=== PATIENT | male | born 1930 | race Caucasian/White ===

== ENCOUNTER → 2016-05-26 | Outpatient (CLI) | payer OTHER ==
[~2016-05-26] VITALS: Ht 180.3 cm; Wt 111.4 kg
[~2016-05-26] MED LIST: ACET-1256 PO; ALLO300T2 PO; ASPI81TA28 PO; CHOL100010 PO; DEXT30TA7 PO; DOCU100C31 PO; GLIP-197 PO; GUAI-13; HYDR-4717 PO; LEVO75TA5 PO; LOSA1TAB38 PO; MAGNTAB4 PO; METO-551 PO; METO5TAB5 PO; MULT-506 PO; NRN300 PO; NZRCR TD; PRAV20TA2 PO; PRED10TA PO; RIVA1TAB4 PO
[2016-05-26 12:54] VITALS: BP 190/72; PULSE 52; Ht 180.3 cm; Wt 111.4 kg
[2016-05-26 12:55] VITALS: BP 228/102
== END | disposition home or self-care (01) ==
LOC: C.NEUR 12:21
PROVIDERS: ATTEND Internal Medicine Pulmonary Disease
DX: G47.30 Sleep apnea, unspecified (principal); I10 Essential (primary) hypertension

== ENCOUNTER → 2016-07-17 | Outpatient (CLI) | payer OTHER ==
[2016-07-17 12:53] LABS: BASO % 0.5 %; BASO ABS # 0.03 K/uL (0-0.2); COMPLETE YES; EOS % 3.4 %; HEMATOCRIT 42.1 % (42-52); IG% 0.3 %; LYMPH % 23.5 %; LYMPH ABS # 1.38 K/uL (1.2-3.4); MEAN CELL VOLUME 91.3 fL (80-100); MEAN CORPUSCULAR HEMOGLOBIN 31.5 pg (25-34); MEAN CORPUSCULAR HGB CONC 34.4 g/dl (32-36); MEAN PLATELET VOLUME 10.1 fL (7.4-10.4); MONO % 9.2 %; NEUT % 63.1 %; PLATELET COUNT 168 K/uL (130-400); RED BLOOD COUNT 4.61 M/uL (4.7-6.1); WHITE BLOOD COUNT 5.86 K/uL (4.8-10.8)
[2016-07-17 13:07] LABS: AST/SGOT 21 U/L (15-37); BLOOD UREA NITROGEN 21 mg/dl (7-18); BUN/CREATININE RATIO 17.6 (10-20); CALCIUM 10.5 mg/dl (8.5-10.1); CARBON DIOXIDE 31 mmol/L (21-32); CHLORIDE 102 mmol/L (98-107); CHOLESTEROL 192 mg/dl (0-200); GLUCOSE 112 mg/dl (70-99); POTASSIUM 4.2 mmol/L (3.5-5.1); SODIUM 141 mmol/L (136-145)
[2016-07-17 13:17] LABS: ALT/SGPT 39 U/L (12-78); CHOLESTEROL/HDL RATIO 3.8; HDL CHOLESTEROL 50 mg/dl; LDL CHOLESTEROL CALCULATED 102 mg/dl; TRIGLYCERIDES 199 mg/dl (0-150); VERY LOW DENSITY LIPOPROT CALC 40 mg/dl
[2016-07-17 13:44] LABS: ESTIMATED AVERAGE GLUCOSE 151 mg/dl; HA1C FLAG Normal (Normal)
--- NOTE | 2016-08-02 10:56 | CODING QUERY MEDICAL NECESSITY ---
CQSUPPORTING DIAGNOSIS NEEDED A supporting diagnosis is required for the test/procedure performed on this patient in order for us to be reimbursed by the patient's insurance. Please provide a supporting diagnosis for the following test/procedure listed below next to the test name along with your signature. *If there is no additional diagnosis for this patient that would support the following test/procedure please document that below next to the test/procedure. Test(s)/Procedure(s) that require a supporting diagnosis: DOS 07/17/16 PROSTATE SPECIFIC TEST (PSA) ORDERED BY ABIDA VILLARREAL Provider Signature: Date: Thank you Maria A Cuello Health Information Management Once completed, please kindly fax back to [phone] For questions please call [phone]
== END | disposition home or self-care (01) ==
LOC: C.LABBFT 07:38
PROVIDERS: ATTEND Internal Medicine
DX: E11.9 Type 2 diabetes mellitus without complications (principal); E03.9 Hypothyroidism, unspecified; C61 Malignant neoplasm of prostate

== ENCOUNTER 2016-07-23 03:53 | Inpatient (IN) | payer OTHER ==
[~2016-07-23] VITALS: Ht 180.3 cm; Wt 107.9 kg
[2016-07-23] VITALS (8 sets, daily range): BP systolic 166–191; BP diastolic 66–71; PULSE 52–70; TEMP 36.7–37; O2SAT 92–95; Ht 180.3 cm; Wt 107.9 kg
[~2016-07-23 03:53] MED LIST changes: -DEXT30TA7 PO; -GUAI-13; -NZRCR TD; -PRED10TA PO
--- NOTE | 2016-07-23 04:27 | EMERGENCY ROOM VISIT NOTE ---
History Report prepared by Kandis: Mc León Under the Supervision of: Dr. Sanna Mathis D.O. First contact with patient: 03:55 Chief Complaint: SHORTNESS OF BREATH Stated Complaint: SHORT OF BREATH History of Present Illness The patient is an 85 year old male who presents to the Emergency Room with complaints of persistent cough for the past few days. The cough is non- productive and the patient notes that sometimes with the episodes of coughing he cannot catch his breath. He also complains of some chest pain with the cough. The patient denies any lung history. He has history of an irregular heart beat and takes Xarelto. Source of History: patient Onset: the past few days Position: other (global) Associated Symptoms: + SOB (with episodes of coughing), + chest pain (with cough) Review of Systems See HPI for pertinent positives & negatives. A total of 10 systems reviewed and were otherwise negative. Past Medical & Surgical Medical Problems: (1) Acute bronchitis (2) Atrial fibrillation (3) Diabetes (4) Shingles Family History No significant family history Social History Smoking Status: Former Smoker Marital Status: Housing Status: lives with family Occupation Status: retired Current/Historical Medications Scheduled Allopurinol (Zyloprim), 300 MG PO DAILY Aspirin (Aspirin Ec), 81 MG PO DAILY Cholecalciferol (Vitamin D), 1,000 INTER.UNIT PO DAILY Gabapentin (Gabapentin), 300 MG PO HS Glipizide (Glipizide Er), 1 TAB PO BID Hydralazine Hcl (Apresoline), 50 MG PO BID Ketoconazole (Ketoconazole), 1 APPLN TD BID Levothyroxine Sodium (Levothyroxine Sodium), 75 MCG PO DAILY Losartan Potassium (Cozaar), 100 MG PO DAILY Magnesium Chloride (Slow-Mag Tab), 64 MG PO BID Metolazone (Zaroxolyn), 5 MG PO DAILY Multivitamin (Multivitamin), 1 TAB PO DAILY Pravastatin Sodium (Pravachol), 20 MG PO DAILY Prednisone Tab (Prednisone), 10 MG PO UD Rivaroxaban (Xarelto), 20 MG PO DAILY Scheduled PRN Acetaminophen (Tylenol), 1,000 MG PO BID PRN for Pain Docusate Sodium (Docusate Sodium), 100 MG PO 2XWK PRN for Constipation Allergies Coded Allergies: No Known Allergies (Verified , ?, 01/02/15) Physical Exam Vital Signs Date Time Temp Pulse Resp B/P Pulse Ox O2 Delivery O2 Flow Rate FiO2 07/23/16 06:54 65 20 160/73 93 Nasal Cannula 07/23/16 06:50 65 18 160/73 94 Nasal Cannula 3.0 07/23/16 05:48 61 20 158/79 95 Nasal Cannula 3.0 07/23/16 05:22 61 07/23/16 05:09 60 16 175/88 94 Nasal Cannula 3.0 07/23/16 04:06 80 07/23/16 04:00 87 Room Air 07/23/16 04:00 37.6 74 16 216/89 91 Nasal Cannula 2.0 Physical Exam HEENT: Head - normocephalic and atraumatic Pupils are equal, round, and reactive to light. Extraocular eye muscles are intact, and sclera are anicteric. Nose - moist nasal mucosa without discharge. Mouth - moist buccal mucosa. Oropharynx is nonerythematous and there is no tonsillar exudate or edema noted. Neck: Supple; no JVD, nuchal rigidity, cervical lymphadenopathy. Heart: Irregular. There is a normal S1 and S2 with no murmurs, clicks, or gallops appreciated. Lungs: Diminished lung sounds in all lung sprague. Abdomen: Soft, completely nontender, nondistended, with good bowel sounds. There are no palpable pulsatile masses or hepatosplenomegaly. There is no guarding, rigidity, or rebound noted. Extremities: No evidence of cyanosis, clubbing. Trace pedal edema. There are easily palpable peripheral pulses. Skin: warm and dry with good turgor and no rashes. Medical Decision & Procedures ER Provider Diagnostic Interpretation: X-ray results as stated below per interpretation by me and the radiologist: CHEST 2 VIEWS ROUTINE CLINICAL HISTORY: eval for director of audiology vs pneumonia dyspnea COMPARISON STUDY: 09/04/2012 FINDINGS: Moderate cardiomegaly. Atelectasis versus infiltrate left base. Pre-existing plate like atelectasis right base. IMPRESSION: 1. Moderate cardiomegaly. 2. Developing infiltrate versus atelectatic change left base. Electronically signed by: Odell Carter M.D. 07/23/2016 6:55 AM Dictated Date/Time: 07/23/2016 6:[address] WITH CONTRAST CT DOSE: 701.08 mGy.cm HISTORY: Pain. Atelectasis. eval for pulmonary consolidation or infiltrate TECHNIQUE: Multiaxial CT images of the chest were performed following the intravenous administration of contrast. COMPARISON: Chest films same date FINDINGS: Minimal bibasilar atelectasis. There are no findings of a consolidative infiltrate. Mid and upper lungs are considered clear. No significant mediastinal or hilar adenopathy. Moderate atelectatic change thoracic aorta. No evidence for aneurysm or dissection. Calcification the coronary arterial vasculature. IMPRESSION: Mild bibasilar atelectatic change. Lungs otherwise are clear Electronically signed by: Odell Carter M.D. 07/23/2016 7:20 AM Dictated Date/Time: 07/23/2016 7:18 AM Laboratory Results Test 07/23/16 04:30 07/23/16 05:07 Immature Granulocyte % (Auto) 0.2 % White Blood Count 5.12 K/uL (4.8-10.8) Red Blood Count 4.66 M/uL (4.7-6.1) Hemoglobin 14.8 g/dL (14.0-18.0) Hematocrit 41.6 % (42-52) Mean Corpuscular Volume 89.3 fL (80-100) Mean Corpuscular Hemoglobin 31.8 pg (25-34) Mean Corpuscular Hemoglobin Concent 35.6 g/dl (32-36) Platelet Count 148 K/uL (130-400) Mean Platelet Volume 9.3 fL (7.4-10.4) Neutrophils (%) (Auto) 64.4 % Lymphocytes (%) (Auto) 22.1 % Monocytes (%) (Auto) 10.4 % Eosinophils (%) (Auto) 2.7 % Basophils (%) (Auto) 0.2 % Neutrophils # (Auto) 3.30 K/uL (1.4-6.5) Lymphocytes # (Auto) 1.13 K/uL (1.2-3.4) Monocytes # (Auto) 0.53 K/uL (0.11-0.59) Eosinophils # (Auto) 0.14 K/uL (0-0.5) Basophils # (Auto) 0.01 K/uL (0-0.2) Immature Granulocyte # (Auto) 0.01 K/uL (0.00-0.02) D-Dimer 270 ug/L FEU (0-500) Total Bilirubin 0.5 mg/dl (0.2-1) Aspartate Amino Transf (AST/SGOT) 25 U/L (15-37) Alanine Aminotransferase (ALT/SGPT) 38 U/L (12-78) Alkaline Phosphatase 68 U/L (45-117) Total Creatine Kinase 157 U/L (39-308) Creatine Kinase MB 5.2 ng/ml (0.5-3.6) Creatine Kinase MB Ratio 3.3 (0-3.0) Troponin I 0.016 ng/ml (0-0.045) Pro-B-Type Natriuretic Peptide 153 pg/ml (0-1800) Total Protein 8.1 gm/dl (6.4-8.2) Albumin 4.2 gm/dl (3.4-5.0) Globulin 3.9 gm/dl (2.5-4.0) Albumin/Globulin Ratio 1.1 (0.9-2) Influenza Type A Antigen Neg for Influ A (NEG) Influenza Type B Antigen Neg for Influ B (NEG) Laboratory results per my review. ECG Indication: SOB/dyspnea Rate (beats per minute): 69 Rhythm: normal sinus Findings: PVC, no ectopy ED Course 0401: Past medical records reviewed. The patient was evaluated in room A10. A complete history and physical exam was performed. A twelve-lead EKG was obtained. The patient was observing the senior interactive developer and pulse oximeter. He was significantly hypoxic upon presentation was placed in supplemental O2. He went for a chest x-ray as described above. 0410: At this time, I watched the patient on the patient monitor in the room. He was intermittently in and out of atrial fibrillation at this time. 0505: At this time, I reevaluated the patient and he is resting comfortably. A patient went for CT scan of the chest to rule out PE. 0738: At this time, I discussed the patient's case with Dr. Pina - Hospitalist [facility] and she agreed to accept the patient for further evaluation. Medical Decision The patient is an 85 year old male who presents to the ED with cough and shortness of breath. Differential diagnosis includes CHF, PE, pneumonia, bronchitis, or cardiac dysrhythmia. Labs reviewed by me: influenza negative, troponin normal, normal BNP, normal LFTs, BUN 24, Creatinine 1.2, glucose 118, d-dimer 270, no leukocytosis, stable H&H This is an 85-year-old male patient presents to the emergency department with sudden onset of shortness of breath and cough. The patient had a significant moist cough on presentation and was hypoxic and placed on supplemental O2. Chest x-ray and CT scan of the chest were unremarkable. Because of the hypoxia, I discussed the case with the [facility] Hospitalist and they will evaluate for further management. Consults Time Called: [phone] Consulting Physician: Dr. Pina - [place]ist [facility] [place] Call: [phone] At this time, I discussed the patient's case with Dr. Pina and she agreed to accept the patient for further evaluation. Impression Primary Impression: Hypoxia Scribe Attestation The scribe's documentation has been prepared under my direction and personally reviewed by me in its entirety. I confirm that the note above accurately reflects all work, treatment, procedures, and medical decision making performed by me. Departure Information Dispostion Being Evaluated By Hospitalist Prescriptions Prednisone Tab (PREDNISONE) 10 Mg Tab 10 MG PO UD, #3 TAB 20 mg day 1 10 mg day 2 Prov: Brittany James MD 07/24/16 Referrals Bora Najera M.D. (PCP)
[2016-07-23 04:42] LABS: BASO % 0.2 %; BASO ABS # 0.01 K/uL (0-0.2); COMPLETE YES; EOS % 2.7 %; HEMATOCRIT 41.6 % (42-52); IG% 0.2 %; LYMPH % 22.1 %; LYMPH ABS # 1.13 K/uL (1.2-3.4); MEAN CELL VOLUME 89.3 fL (80-100); MEAN CORPUSCULAR HEMOGLOBIN 31.8 pg (25-34); MEAN CORPUSCULAR HGB CONC 35.6 g/dl (32-36); MEAN PLATELET VOLUME 9.3 fL (7.4-10.4); MONO % 10.4 %; NEUT % 64.4 %; PLATELET COUNT 148 K/uL (130-400); RED BLOOD COUNT 4.66 M/uL (4.7-6.1); WHITE BLOOD COUNT 5.12 K/uL (4.8-10.8)
[2016-07-23] MEDS ORDERED: NZRCR TD ×2 (04:56)
[2016-07-23 05:00] LABS: CALCIUM 10.2 mg/dl (8.5-10.1); CREATININE 1.2 mg/dl (0.60-1.40); POTASSIUM 3.5 mmol/L (3.5-5.1)
[2016-07-23 05:05] LABS: ALB/GLOB RATIO 1.1 (0.9-2); CKMB/CK RATIO 3.3 (0-3.0)
--- NOTE | 2016-07-23 06:57 | DIAGNOSTIC IMAGING REPORT ---
CHEST 2 VIEWS ROUTINE CLINICAL HISTORY: eval for machine rigger vs pneumonia dyspnea COMPARISON STUDY: 09/04/2012 FINDINGS: Moderate cardiomegaly. Atelectasis versus infiltrate left base. Pre-existing plate like atelectasis right base. IMPRESSION: 1. Moderate cardiomegaly. 2. Developing infiltrate versus atelectatic change left base. Electronically signed by: Odell Carter M.D. 07/23/2016 6:55 AM Dictated Date/Time: 07/23/2016 6:54 AM
[2016-07-23] MEDS ORDERED: OPTIRAY 320 IV PRN (07:15)
--- NOTE | 2016-07-23 07:21 | DIAGNOSTIC IMAGING REPORT ---
CHEST CT WITH CONTRAST CT DOSE: 701.08 mGy.cm HISTORY: Pain. Atelectasis. eval for pulmonary consolidation or infiltrate TECHNIQUE: Multiaxial CT images of the chest were performed following the intravenous administration of contrast. COMPARISON: Chest films same date FINDINGS: Minimal bibasilar atelectasis. There are no findings of a consolidative infiltrate. Mid and upper lungs are considered clear. No significant mediastinal or hilar adenopathy. Moderate atelectatic change thoracic aorta. No evidence for aneurysm or dissection. Calcification the coronary arterial vasculature. IMPRESSION: Mild bibasilar atelectatic change. Lungs otherwise are clear Electronically signed by: Odell Carter M.D. 07/23/2016 7:20 AM Dictated Date/Time: 07/23/2016 7:18 AM
[2016-07-23] MEDS ORDERED: ACETAMINOPHEN 325 MG TAB PO PRN (08:30)
[2016-07-23] MEDS ORDERED: ONDANSETRON INJ 2 MG/ML 2 ML VIAL IV PRN (08:30)
[2016-07-23] MEDS ORDERED: ALBUT/IPRATROP 3MG/0.5MG NEB 3 ML VIAL INH PRN (08:30)
[2016-07-23] MEDS ORDERED: ALUMINUM/MAGNESIUM/SIMETH (MAALOX MAX) 30 ML UDC PO PRN (08:30)
[2016-07-23] MEDS ORDERED: MAGNESIUM HYDROXIDE SUSP 30 ML UDC PO PRN (08:30)
--- NOTE | 2016-07-23 08:47 | History and Physical ---
History & Physical Date & Time of Service: Jul 23, 2016 at 08:46 Chief Complaint: Short Of Breath Primary Care Physician: Bora Najera M.D. History of Present Illness Source: patient Mr. Hirsch is an 85 y/o male with PMHx of Paroxysmal Atrial Fibrillation, T2DM, HTN, TERRY, HLD, and Hypothyroidism who presents to the emergency department complaining of a nonproductive cough and shortness of breath 4 days. Patient states that on Sunday he developed rhinorrhea, postnasal drip, and a sore throat in addition to this nonproductive cough. He was evaluated by his PCP, Dr. Najera, who prescribed Delsym which only gave minimal relief. Symptoms have progressed since then. Patient utilizes CPAP at night for TERRY. He states that he was awoken from his sleep due to acute shortness of breath while still on his CPAP. He arrived via ambulance and received a DuoNeb enroute and reports some relief. Patient does not utilize home oxygen, and was noted to be 86% on room air when EMS arrived. He denies history of asthma or COPD. He follows with pulmonology for his TERRY. Patient is a former smoker who quit over 60 years ago. He denies fever/chills, headache, CP, abdominal pain, N/V, dysuria, constipation/diarrhea. In the ED, temperature of 99.6 and without leukocytosis. CXR and chest CT with evidence of mild bibasilar atelectatic changes but no evidence of consolidation. EKG with normal sinus rhythm and PVCs. Patient is negative for the flu. Patient will be admitted to [facility] for acute bronchitis with hypoxemia. Past Medical/Surgical History Medical Problems: (1) Atrial fibrillation Status: Chronic (2) Diabetes Status: Chronic (3) Shingles Status: Resolved Family History No significant family history Social History Smoking Status: Former Smoker Marital Status: Occupational Status: retired Immunizations History of Influenza Vaccine: N/A Influenza Vaccine Date: Feb 12, 2012 History of Tetanus Vaccine?: Unknown History of Pneumococcal: Yes Pneumococcal Date: Feb 11, 2012 History of Hepatitis B Vaccine: Unknown Multi-Drug Resistant Organisms History of MDRO: Yes Allergies Coded Allergies: No Known Allergies (Verified , ?, 01/02/15) Home Medications Scheduled Allopurinol (Zyloprim), 300 MG PO DAILY Aspirin (Aspirin Ec), 81 MG PO DAILY Cholecalciferol (Vitamin D), 1,000 INTER.UNIT PO DAILY Gabapentin (Gabapentin), 300 MG PO HS Glipizide (Glipizide Er), 1 TAB PO BID Hydralazine Hcl (Apresoline), 50 MG PO BID Ketoconazole (Ketoconazole), 1 APPLN TD BID Levothyroxine Sodium (Levothyroxine Sodium), 75 MCG PO DAILY Losartan Potassium (Cozaar), 100 MG PO DAILY Magnesium Chloride (Slow-Mag Tab), 64 MG PO BID Metolazone (Zaroxolyn), 5 MG PO DAILY Multivitamin (Multivitamin), 1 TAB PO DAILY Pravastatin Sodium (Pravachol), 20 MG PO DAILY Rivaroxaban (Xarelto), 20 MG PO DAILY Scheduled PRN Acetaminophen (Tylenol), 1,000 MG PO BID PRN for Pain Docusate Sodium (Docusate Sodium), 100 MG PO 2XWK PRN for Constipation Review of Systems Constitutional: No chills, No fever Eyes: No worsening of vision ENT: + nasal symptoms, + sore throat, No trouble swallowing Respiratory: + cough, + shortness of breath, + wheezing, No sputum Cardiovascular: + chest pain (with coughing) Abdomen: No constipation, No diarrhea, No nausea, No pain, No vomiting Musculoskeletal: No calf pain, No swelling Genitourinary - Male: No dysuria Hematologic / Lymphatic: No abnormal bleeding/bruising, No clotting problems Integumentary: No rash Physical Exam Vital Signs Date Time Temp Pulse Resp B/P Pulse Ox O2 Delivery O2 Flow Rate FiO2 07/23/16 06:54 65 20 160/73 93 Nasal Cannula 07/23/16 06:50 65 18 160/73 94 Nasal Cannula 3.0 07/23/16 05:48 61 20 158/79 95 Nasal Cannula 3.0 07/23/16 05:22 61 07/23/16 05:09 60 16 175/88 94 Nasal Cannula 3.0 07/23/16 04:06 80 07/23/16 04:00 87 Room Air 07/23/16 04:00 37.6 74 16 216/89 91 Nasal Cannula 2.0 General Appearance: WD/WN, no apparent distress Head: normocephalic, atraumatic Eyes: sclerae normal ENT: hearing grossly normal (with aid of bilateral hearing aids) Neck: supple, no adenopathy, no JVD, trachea midline Respiratory/Chest: no respiratory distress, no accessory muscle use, + decreased breath sounds, + wheezing (intermittent) Cardiovascular: regular rate, rhythm, no gallop, no murmur Abdomen/GI: normal bowel sounds, non tender, soft Back: no CVA tenderness Extremities/Musculoskelatal: no calf tenderness, no pedal edema Neurologic/Psych: alert, oriented x 3 Skin: normal color, warm/dry Diagnostics Laboratory Results Results Past 24 Hours Test 07/23/16 04:30 07/23/16 05:07 Range/Units White Blood Count 5.12 4.8-10.8 K/uL Red Blood Count 4.66 4.7-6.1 M/uL Hemoglobin 14.8 14.0-18.0 g/dL Hematocrit 41.6 42-52 % Mean Corpuscular Volume 89.3 80-100 fL Mean Corpuscular Hemoglobin 31.8 25-34 pg Mean Corpuscular Hemoglobin Concent 35.6 32-36 g/dl Platelet Count 148 130-400 K/uL Mean Platelet Volume 9.3 7.4-10.4 fL Neutrophils (%) (Auto) 64.4 % Lymphocytes (%) (Auto) 22.1 % Monocytes (%) (Auto) 10.4 % Eosinophils (%) (Auto) 2.7 % Basophils (%) (Auto) 0.2 % Neutrophils # (Auto) 3.30 1.4-6.5 K/uL Lymphocytes # (Auto) 1.13 1.2-3.4 K/uL Monocytes # (Auto) 0.53 0.11-0.59 K/uL Eosinophils # (Auto) 0.14 0-0.5 K/uL Basophils # (Auto) 0.01 0-0.2 K/uL RDW Standard Deviation 46.4 36.4-46.3 fL RDW Coefficient of Variation 14.2 11.5-14.5 % Immature Granulocyte % (Auto) 0.2 % Immature Granulocyte # (Auto) 0.01 0.00-0.02 K/uL D-Dimer 270 0-500 ug/L FEU Sodium Level 141 136-145 mmol/L Potassium Level 3.5 3.5-5.1 mmol/L Chloride Level 102 98-107 mmol/L Carbon Dioxide Level 29 21-32 mmol/L Anion Gap 10.0 3-11 mmol/L Blood Urea Nitrogen 24 7-18 mg/dl Creatinine 1.20 0.60-1.40 mg/dl Est Creatinine Clear Calc Drug Dose 56.2 ml/min Estimated GFR () 63.5 Estimated GFR (Non- 54.8 BUN/Creatinine Ratio 20.0 10-20 Random Glucose 118 70-99 mg/dl Calcium Level 10.2 8.5-10.1 mg/dl Total Bilirubin 0.5 0.2-1 mg/dl Aspartate Amino Transf (AST/SGOT) 25 15-37 U/L Alanine Aminotransferase (ALT/SGPT) 38 12-78 U/L Alkaline Phosphatase 68 45-117 U/L Total Creatine Kinase 157 39-308 U/L Creatine Kinase MB 5.2 0.5-3.6 ng/ml Creatine Kinase MB Ratio 3.3 0-3.0 Troponin I 0.016 0-0.045 ng/ml Pro-B-Type Natriuretic Peptide 153 0-1800 pg/ml Total Protein 8.1 6.4-8.2 gm/dl Albumin 4.2 3.4-5.0 gm/dl Globulin 3.9 2.5-4.0 gm/dl Albumin/Globulin Ratio 1.1 0.9-2 Influenza Type A Antigen Neg for Influ A NEG Influenza Type B Antigen Neg for Influ B NEG Diagnostic Radiology CHEST 2 VIEWS ROUTINE CLINICAL HISTORY: eval for sound effects supervisor vs pneumonia dyspnea COMPARISON STUDY: 09/04/2012 FINDINGS: Moderate cardiomegaly. Atelectasis versus infiltrate left base. Pre-existing plate like atelectasis right base. IMPRESSION: 1. Moderate cardiomegaly. 2. Developing infiltrate versus atelectatic change left base. CHEST CT WITH CONTRAST CT DOSE: 701.08 mGy.cm HISTORY: Pain. Atelectasis. eval for pulmonary consolidation or infiltrate TECHNIQUE: Multiaxial CT images of the chest were performed following the intravenous administration of contrast. COMPARISON: Chest films same date FINDINGS: Minimal bibasilar atelectasis. There are no findings of a consolidative infiltrate. Mid and upper lungs are considered clear. No significant mediastinal or hilar adenopathy. Moderate atelectatic change thoracic aorta. No evidence for aneurysm or dissection. Calcification the coronary arterial vasculature. IMPRESSION: Mild bibasilar atelectatic change. Lungs otherwise are clear EKG Poor data quality, interpretation may be adversely affected Sinus rhythm with occasional Premature ventricular complexes Nonspecific ST and T wave abnormality Abnormal ECG When compared with ECG of 04-SEP-2012 09:34, Premature ventricular complexes are now Present Impression Assessment and Plan Mr. Hirsch is an 85 y/o male with PMHx of Paroxysmal Atrial Fibrillation, T2DM, HTN, TERRY, HLD, and Hypothyroidism who presents to the emergency department complaining of a nonproductive cough and shortness of breath 4 days. Acute Bronchitis with Hypoxia: - CXR and CT - image and report reviewed - evidence of atelectatic changes without evidence of consolidation - Methylprednisolone 40 mg IV daily - Duo nebs QID and Q2H PRN - Will defer antibiotic treatment at this time Paroxysmal Atrial Fibrillation: Currently NSR - Xarelto 20 mg daily T2DM: - Glipizide XL 5 mg BID and SSI - Gabapentin 300 mg HS HTN: - Hydralazine 50 mg BID - Losartan 100 mg daily - Metolazone 5 mg daily TERRY: - CPAP set-up HLD: - Pravastatin 20 mg HS Hypothyroidism: - Synthroid 75 mcg daily Gout: - Allopurinol 300 mg daily DVT Prophylaxis: Xarelto Code Status: FULL RESUSCITATION Disposition: Resides at home Level of Care Med/Surg Resuscitation Status FULL RESUSCITATION VTE Prophylaxis VTE Risk Assessment Done? Y/N: Yes Risk Level: Moderate Given or contraindicated: Other Anticoagulation (Xarelto) Reviewed: Pt Seen/Exam by Me History Pt still feeling SOB and with a cough. No chest pain, but does not rib/abd muscle pain with his cough only. Tolerating PO without issue. No hx of home O2 use. Agree with HPI/ROS as noted. General Appearance: WD/WN, no apparent distress Respiratory: no respiratory distress, decreased breath sounds Cardiovascular: normal peripheral pulses, regular rate, rhythm Gastrointestinal: non tender, soft, distended Extremities: non-tender, no pedal edema Neurologic/Psychiatric: alert, normal mood/affect Skin Characteristics: normal color, warm/dry Assessment/Plan Agree with plan as outlined above COPD exacerbation Monitor on nebs, steroids, O2 CXR ? PNA vs atelectasis with CT chest neg for PNA Hold on abx at this time given imaging, afebrile, WBC WNL
[2016-07-23] MEDS ORDERED: ALLOPURINOL 300 MG TAB PO SCH (09:00)
[2016-07-23] MEDS ORDERED: DEXTROSE 50% 50 ML SYR IV PRN (10:30)
[2016-07-23] MEDS ORDERED: GLUCOSE 40% GEL 15 GM TUBE PO PRN (10:30)
[2016-07-23] MEDS ORDERED: POLYETHYLENE (MIRALAX) 17 GM PACK PO PRN (10:30)
[2016-07-23] MEDS ORDERED: GLUCOSE 10 TABS/TUBE PO PRN (10:30)
[2016-07-23] MEDS ORDERED: GLUCAGON FOR INJ 1 MG VIAL SQ PRN (10:30)
[2016-07-23] MEDS: KETOCONAZOLE 2% CR 15 GM TUBE EXT SCH ×2 (11:00→20:00)
[2016-07-23] MEDS: INSULIN ASPART 100 UNITS/ML 3 ML PEN SC SCH ×3 (11:00→21:34)
[2016-07-23] MEDS: METHYLPREDNISOLONE IV 40 MG in SYRINGE 0 ML IV SCH (11:34)
[2016-07-23] MEDS: MAGNESIUM CHLORIDE 64MG DELAYED REL TAB PO SCH ×2 (11:35→21:30)
[2016-07-23] MEDS: ASPIRIN 81 MG ECTAB PO SCH (11:35)
[2016-07-23] MEDS: LOSARTAN POTASSIUM 50 MG TAB PO SCH (11:35)
[2016-07-23] MEDS: METOLAZONE 5 MG TAB PO SCH (11:36)
[2016-07-23] MEDS: LEVOTHYROXINE 75 MCG TAB PO SCH (11:36)
[2016-07-23] MEDS: ALBUT/IPRATROP 3MG/0.5MG NEB 3 ML VIAL INH SCH ×3 (11:40→19:53)
[2016-07-23] MEDS: RIVAROXABAN 20 MG TAB PO SCH (17:54)
[2016-07-23] MEDS ORDERED: PRAVASTATIN SOD 20 MG TAB PO SCH (21:00)
[2016-07-23] MEDS ORDERED: GABAPENTIN 300 MG CAP PO SCH (21:00)
[2016-07-23] MEDS ORDERED: NURSING VERBAL MED ORDER ONE (21:30)
[2016-07-24] VITALS (7 sets, daily range): BP systolic 172–178; BP diastolic 82–87; PULSE 58–87; TEMP 36.4–36.7; O2SAT 92–94
[2016-07-24] MEDS ORDERED: INSULIN ASPART 100 UNITS/ML 3 ML PEN SC SCH (02:00)
[2016-07-24] MEDS: LEVOTHYROXINE 75 MCG TAB PO SCH (05:39)
[2016-07-24 06:04] LABS: HEMATOCRIT 40.6 % (42-52); MEAN CELL VOLUME 89.2 fL (80-100); MEAN CORPUSCULAR HEMOGLOBIN 30.5 pg (25-34); MEAN CORPUSCULAR HGB CONC 34.2 g/dl (32-36); MEAN PLATELET VOLUME 9.8 fL (7.4-10.4); PLATELET COUNT 169 K/uL (130-400); RED BLOOD COUNT 4.55 M/uL (4.7-6.1); WHITE BLOOD COUNT 7.04 K/uL (4.8-10.8)
[2016-07-24] MEDS: INSULIN ASPART 100 UNITS/ML 3 ML PEN SC SCH ×3 (06:30→17:41)
[2016-07-24 06:33] LABS: CALCIUM 9.7 mg/dl (8.5-10.1); CREATININE 1.6 mg/dl (0.60-1.40)
[2016-07-24] MEDS: ALBUT/IPRATROP 3MG/0.5MG NEB 3 ML VIAL INH SCH ×3 (07:22→15:37)
[2016-07-24] MEDS: METHYLPREDNISOLONE IV 40 MG in SYRINGE 0 ML IV SCH (07:38)
[2016-07-24] MEDS: KETOCONAZOLE 2% CR 15 GM TUBE EXT SCH (07:38)
[2016-07-24] MEDS: METOLAZONE 5 MG TAB PO SCH (07:39)
[2016-07-24] MEDS: ASPIRIN 81 MG ECTAB PO SCH (07:39)
[2016-07-24] MEDS: LOSARTAN POTASSIUM 50 MG TAB PO SCH (07:39)
[2016-07-24] MEDS: MAGNESIUM CHLORIDE 64MG DELAYED REL TAB PO SCH (07:39)
[2016-07-24] MEDS ORDERED: SODIUM CHLORIDE 0.9% 1000ML 1,000 ML IV ONE (09:45)
--- NOTE | 2016-07-24 10:13 | Clinical Documentation Query ---
DARA Andrew : CLINICAL DOCUMENTATION QUERY Patient is an 85 year old male admitted for evaluation and treatment of a COPD exacerbation. Admission BUN and creatinine were 24 mg/dl and 1.20 mg/dl. This a.m. (07/24), repeat values are 37 mg/dl and 1.60 mg/dl. Additionally, historical GFR range from 07/19 to admission was 50-61 ml/min. He is being treated with IVF and monitored with serial chemistries. As appropriate, consider clarification as suggested below. 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 ( ) Other explanation of clinical findings (Please Explain) ( ) Unable to determine (Please Define) ( ) Need to Discuss ( ) Not Agree The medical record reflects the following clinical findings, treatment, and risk factors. Clinical Indicators: As above Treatment: He is being treated with IVF and monitored with serial chemistries Risk Factors: Age Please clarify and document your clinical opinion in the progress notes and discharge summary. Terms such as "probable", "suspected", "likely", "questionable", "possible", or "still to be ruled out" are acceptable. IF IN AGREEMENT, YOU MUST DOCUMENT ABOVE DIAGNOSTIC STATEMENT IN DAILY PROGRESS NOTES AND DISCHARGE SUMMARY. This document is not part of the patient's record. Thank You, Adam Mc, JAIDA [phone]
[2016-07-24 14:56] LABS: BUN/CREATININE RATIO 20.8 (10-20); CALCIUM 9.9 mg/dl (8.5-10.1); CREATININE 1.7 mg/dl (0.60-1.40)
[2016-07-24 15:06] LABS: BETA-HYDROXYBUTYRATE 2.99 mg/dL (0.2-2.81)
[2016-07-24] MEDS ORDERED: SODIUM CHLORIDE 0.9% 1000ML 1,000 ML IV SCH (15:15)
[2016-07-24] MEDS ORDERED: PRED10TA PO ×2 (17:29)
--- NOTE | 2016-07-24 17:34 | Discharge Instructions ---
Discharge Instructions Date of Service Jul 24, 2016. Admission Reason for Admission: Acute Bronchtis, Hypoxia Discharge Discharge Diagnosis / Problem: hypoxia Discharge Goals Goal(s): Diagnostic testing, Therapeutic intervention Activity Recommendations Activity Limitations: resume your previous activity . Instructions / Follow-Up Instructions / Follow-Up Your were admitted to the hospital because of increasing shortness of breath and hypoxia. We treated you with some breathing treatments and oxygen to help open up your lungs and steroids which were in order to decrease inflammation in the lungs. Overnight you had significant improvement in your symptoms and because of this we decided to discharge you home. We would like you to continue two more days of prednisone We were concerned however because of the small increase in the blood level called creatinine. This is a blood test which reflects that there was some damage to your kidneys when you were feeling very ill. You were given fluids while you were in the hospital and the plan is to recheck these levels tomorrow in the closest clinic. Dr Najera is your PCP and he will be able to manage this well in the outpatient setting so please arrange a follow up with him jasmina. 1. Recheck your blood levels of creatine tomorrow 2. Important to follow up with Dr Dania freedman 3. Continue prednisone for two more days, two pills tomorrow and 1 pill the day after We wish you well Laura James Current Hospital Diet Patient's current hospital diet: Diabetes Type 2 Diet Discharge Diet Recommended Diet: Diabetes Type 2 Diet Pending Studies Studies pending at discharge: no Laboratory Results Hemoglobin A1c Test 07/17/16 07:42 Range/Units Estimated Average Glucose 151 mg/dl Hemoglobin A1c 6.9 H 4.5-5.6 % Lipid Panel Test 07/17/16 07:42 Range/Units Triglycerides Level 199 H 0-150 mg/dl Cholesterol Level 192 0-200 mg/dl HDL Cholesterol 50 mg/dl Cholesterol/HDL Ratio 3.8 LDL Cholesterol, Calculated 102 mg/dl Medical Emergencies . Who to Call and When: Medical Emergencies: If at any time you feel your situation is an emergency, please call 911 immediately. . Non-Emergent Contact Non-Emergency issues call your: Primary Care Provider . . "Provider Documentation" section prepared by Brittany James. VTE Core Measure Inpt VTE Proph given/why not?: Other Anticoagulation (Xarelto)
[2016-07-24] MEDS: RIVAROXABAN 20 MG TAB PO SCH (17:42)
--- NOTE | 2016-07-24 18:34 | Discharge Summary ---
Discharge Summary Date of Service Jul 24, 2016. (Brittany James MD) Discharge Summary Admission Date: Jul 23, 2016 at 08:42 Discharge Date: Jul 24, 2016 Discharge Disposition: Home Principal Diagnosis: hypoxia Immunizations: Have You Had Influenza Vaccine: N/A Influenza Vaccine Date: Feb 12, 2012 History of Tetanus Vaccine?: Unknown History of Pneumococcal: Yes Pneumococcal Date: Feb 11, 2012 History of Hepatitis B Vaccine: Unknown (Brittany James MD) Medication Reconciliation New Medications: Prednisone Tab (Prednisone) 10 Mg Tab 10 MG PO UD, #3 TAB 20 mg day 1 10 mg day 2 Continued Medications: Acetaminophen (Tylenol) 500 Mg Tab 1000 MG PO BID PRN for Pain, TAB Allopurinol (Zyloprim) 300 Mg Tab 300 MG PO DAILY, TAB Aspirin (Aspirin Ec) 81 Mg Tab 81 MG PO DAILY Cholecalciferol (Vitamin D) 1,000 Inter.unit Tab 1000 INTER.UNIT PO DAILY, TAB Docusate Sodium (Docusate Sodium) 100 Mg Cap 100 MG PO 2XWK PRN for Constipation, CAP Gabapentin (Gabapentin) 300 Mg Cap 300 MG PO HS Glipizide (Glipizide Er) 5 Mg Tab 1 TAB PO BID, TAB Hydralazine Hcl (Apresoline) 50 Mg Tab 50 MG PO BID, TAB Ketoconazole (Ketoconazole) 45 Appln/15 Gm Cr 1 APPLN TD BID APPLY TO AFFECTED AREAS TWICE DAILY Levothyroxine Sodium (Levothyroxine Sodium) 75 Mcg Tab 75 MCG PO DAILY, TAB Losartan Potassium (Cozaar) 100 Mg Tab 100 MG PO DAILY, TAB Magnesium Chloride (Slow-Mag Tab) 64 Mg Tabcr 64 MG PO BID, TAB Metolazone (Zaroxolyn) 5 Mg Tab 5 MG PO DAILY, TAB Multivitamin (Multivitamin) Tab 1 TAB PO DAILY, TAB Pravastatin Sodium (Pravachol) 20 Mg Tab 20 MG PO DAILY, TAB Rivaroxaban (Xarelto) 20 Mg Tab 20 MG PO DAILY, TAB Discharge Exam Patient's hypoxia has completely resolved we discussed discharge and patient was agreeable to d/c Review of Systems: Constitutional: No fever Eyes: No worsening of vision ENT: No hearing loss Respiratory: No cough, No dyspnea at rest, No dyspnea on exertion, No shortness of breath, No sputum, No wheezing Cardiovascular: No chest pain Abdomen: No constipation, No diarrhea, No nausea, No pain, No vomiting Musculoskeletal: No joint pain, No muscle pain Genitourinary - Male: No dysuria, No hematuria, No urinary hesitancy Neurologic: No balance problems, No numbness/tingling, No weakness Endocrine: No fatigue Physical Exam: General Appearance: WD/WN, no apparent distress Eyes: normal inspection ENT: normal ENT inspection Neck: supple Respiratory/Chest: lungs clear, normal breath sounds, no respiratory distress, no accessory muscle use Cardiovascular: no murmur, + irregularly irregular Abdomen / GI: normal bowel sounds, non tender, soft Extremities: no calf tenderness, no pedal edema Neurologic/Psychiatric: alert, normal mood/affect, oriented x 3 Skin: normal color, warm/dry, no rash Lymphatic: no adenopathy (Brittany James MD) Hospital Course This is an 85 yo m that presented to us with acute hypoxia and worsening shortness of breath. He was admitted to the hospital and started on IV steroids as well as breathing treatments. He significantly improved overnight and had no oxygen requirement in the am. The plan was to d/c the patient home however it was noted that there was an elevation in his Cr from his BL so IVF were given as well as a repeat in the pm. This is most likely secondary to the IV contrast he received for this chest CT. As it continued to remain elevated we discussed the risks and benefits in staying in the hospital until the Cr. resolved. It was decided that since his PCP is primarily a youth liaison officer he would repeat his BMP tomorrow and follow up with Dr Dania freedman. He understood the importance of follow up and we discussed red flag symptoms which he reflected understanding Mr. Hirsch is an 85 y/o male with PMHx of Paroxysmal Atrial Fibrillation, T2DM, HTN, TERRY, HLD, and Hypothyroidism who presents to the emergency department complaining of a nonproductive cough and shortness of breath 4 days. Acute Bronchitis with Hypoxia: - CXR and CT - image and report reviewed - evidence of atelectatic changes without evidence of consolidation - Methylprednisolone 40 mg IV daily- transitioned to oral prednisone taper - Duo nebs QID and Q2H PRN received in house - Will defer antibiotic treatment at this time as it was unlikely infectious in nature and patient was improving BARRY - 1 L of NSS received - recheck BMP , close follow up with PCP TERRY: - CPAP set-up- received while in house DVT Prophylaxis: Xarelto Total Time Spent: Less than 30 minutes This includes examination of the patient, discharge planning, medication reconciliation, and communication with other providers. (Brittany James MD) Resident Physician Supervision Note: I interviewed and examined the patient. Discussed with Dr. James and agree with findings and plan as documented in the note. Any exceptions or clarifications are listed here: None Documented By: Mau Angeles feeling better breathing better wants to go home. discussed creatinine - willing to drink lots of PO, willing to get labs daily at [facility] if needed vitals noted lungs clear mucous membranes moist a/p bronchitis - improved, stable for home BARRY - on what appears to be ?stage 2 CKD (w age cockroft gault less accurate, may be stage 3) - but likely worse due to steroids -- high sugars -- hyperglycemic dehydration - got 2L IVF today, willing to have good close f/u, otherwise appears well. stable for home labs tomorrow then daily if needed. Total Time Spent: Less than 30 minutes (Mau Angeles, D.O.) Discharge Instructions Please refer to the electronic Patient Visit Report (Discharge Instructions) for additional information. (Brittany James MD) Additional Copies To Bora Najera M.D.
[2016-10-05] MEDS ORDERED: GUAI-13 (09:19)
[2016-10-05] MEDS ORDERED: DEXT30TA7 PO (09:19)
== END 2016-07-24 18:40 | disposition home or self-care (01) | DRG 191 ==
LOC: ENRESERVDT → ENRESERVTM → EDBD 03:53 → C.EDA 03:54 → C.4E 08:42 → EDBEDREQTM 09:03
PROVIDERS: ADMIT Family Medicine; ATTEND Family Medicine
DX: J44.1 Chronic obstructive pulmonary disease with (acute) exacerbation (principal); N17.9 Acute kidney failure, unspecified; J44.0 Chronic obstructive pulmonary disease with (acute) lower respiratory infection; J20.9 Acute bronchitis, unspecified; I48.0 Paroxysmal atrial fibrillation; I12.9 Hypertensive chronic kidney disease with stage 1 through stage 4 chronic kidney disease, or unspecified chronic kidney disease; E11.21 Type 2 diabetes mellitus with diabetic nephropathy; R09.02 Hypoxemia; G47.33 Obstructive sleep apnea (adult) (pediatric); E78.5 Hyperlipidemia, unspecified; E03.9 Hypothyroidism, unspecified; I48.2 Chronic atrial fibrillation; M10.9 Gout, unspecified; N18.3 Chronic kidney disease, stage 3 (moderate); Z87.891 Personal history of nicotine dependence; E11.65 Type 2 diabetes mellitus with hyperglycemia

== ENCOUNTER → 2016-07-25 | Outpatient (CLI) | payer OTHER ==
[~2016-07-25] MED LIST changes: +DEXT30TA7 PO; +GUAI-13; +NZRCR TD; +PRED10TA PO
[2016-07-25 13:32] LABS: BLOOD UREA NITROGEN 33 mg/dl (7-18); BUN/CREATININE RATIO 20.8 (10-20); CALCIUM 10.1 mg/dl (8.5-10.1); CARBON DIOXIDE 27 mmol/L (21-32); CHLORIDE 103 mmol/L (98-107); GLUCOSE 164 mg/dl (70-99); POTASSIUM 4.1 mmol/L (3.5-5.1); SODIUM 142 mmol/L (136-145)
== END | disposition home or self-care (01) ==
LOC: C.LABBFT 08:03
PROVIDERS: ATTEND Internal Medicine
DX: N28.9 Disorder of kidney and ureter, unspecified (principal)

== ENCOUNTER → 2016-07-31 | Outpatient (CLI) | payer OTHER ==
[~2016-07-31] MED LIST changes: -METO-551 PO
[2016-07-31 12:31] LABS: BLOOD UREA NITROGEN 42 mg/dl (7-18); BUN/CREATININE RATIO 32.6 (10-20); CALCIUM 10.1 mg/dl (8.5-10.1); CARBON DIOXIDE 30 mmol/L (21-32); CHLORIDE 104 mmol/L (98-107); GLUCOSE 109 mg/dl (70-99); POTASSIUM 3.7 mmol/L (3.5-5.1); SODIUM 141 mmol/L (136-145)
== END | disposition home or self-care (01) ==
LOC: C.LABBFT 07:32
PROVIDERS: ATTEND Physician Assistant
DX: R79.89 Other specified abnormal findings of blood chemistry (principal)

== ENCOUNTER → 2016-09-26 | Outpatient (CLI) | payer OTHER ==
[~2016-09-26] MED LIST changes: -PRED10TA PO
--- NOTE | 2016-09-26 15:16 | DIAGNOSTIC IMAGING REPORT ---
CHEST 2 VIEWS ROUTINE CLINICAL HISTORY: COUGH dyspnea COMPARISON STUDY: 07/23/2016 FINDINGS: Bibasilar atelectasis. Mild stable cardiomegaly. Lungs otherwise appear clear. IMPRESSION: Stable bibasilar atelectasis. Mild stable cardiomegaly. Electronically signed by: Odell Carter M.D. 09/26/2016 3:14 PM Dictated Date/Time: 09/26/2016 3:14 PM
== END | disposition home or self-care (01) ==
LOC: C.RAD1850 14:46
PROVIDERS: ATTEND Physician Assistant
DX: R05 Cough (principal); J98.11 Atelectasis

== ENCOUNTER → 2016-11-08 | Outpatient (CLI) | payer OTHER ==
[2016-11-08 13:20] LABS: ESTIMATED AVERAGE GLUCOSE 151 mg/dl; HA1C FLAG Normal (Normal)
== END | disposition home or self-care (01) ==
LOC: C.LABBFT 07:30
PROVIDERS: ATTEND Internal Medicine
DX: E11.9 Type 2 diabetes mellitus without complications (principal)

== ENCOUNTER → 2016-11-28 | Outpatient (CLI) | payer OTHER ==
[2016-11-28 12:43] LABS: BLOOD UREA NITROGEN 32 mg/dl (7-18); BUN/CREATININE RATIO 22.5 (10-20); CALCIUM 10.3 mg/dl (8.5-10.1); CARBON DIOXIDE 30 mmol/L (21-32); CHLORIDE 105 mmol/L (98-107); GLUCOSE 114 mg/dl (70-99); MAGNESIUM 1.6 mg/dl (1.8-2.4); POTASSIUM 3.7 mmol/L (3.5-5.1); SODIUM 140 mmol/L (136-145)
== END | disposition home or self-care (01) ==
LOC: C.LABBFT 07:45
PROVIDERS: ATTEND Internal Medicine
DX: R00.1 Bradycardia, unspecified (principal)

== ENCOUNTER → 2016-12-08 | Outpatient (CLI) | payer OTHER ==
[~2016-12-08] VITALS: Ht 180.3 cm; Wt 105.3 kg
[2016-12-08 14:56] VITALS: BP 197/75; PULSE 70; Ht 180.3 cm; Wt 105.3 kg
== END | disposition home or self-care (01) ==
LOC: C.NEUR 14:31
PROVIDERS: ATTEND Physician Assistant
DX: G47.30 Sleep apnea, unspecified (principal)

== ENCOUNTER → 2017-02-13 | Outpatient (CLI) | payer OTHER ==
[2017-02-13 12:09] LABS: HEMATOCRIT 40.6 % (42-52); MEAN CELL VOLUME 90.8 fL (80-100); MEAN CORPUSCULAR HEMOGLOBIN 30.2 pg (25-34); MEAN CORPUSCULAR HGB CONC 33.3 g/dl (32-36); MEAN PLATELET VOLUME 10.4 fL (7.4-10.4); PLATELET COUNT 177 K/uL (130-400); RED BLOOD COUNT 4.47 M/uL (4.7-6.1); WHITE BLOOD COUNT 7.12 K/uL (4.8-10.8)
[2017-02-13 12:25] LABS: INR 1.3 (0.9-1.1); PARTIAL THROMBOPLASTIN RATIO 1.5; PROTHROMBIN TIME (PATIENT) 14.2 SECONDS (9.0-12.0)
[2017-02-13 12:35] LABS: BLOOD UREA NITROGEN 32 mg/dl (7-18); BUN/CREATININE RATIO 22.9 (10-20); CALCIUM 10.1 mg/dl (8.5-10.1); CARBON DIOXIDE 28 mmol/L (21-32); CHLORIDE 104 mmol/L (98-107); GLUCOSE 194 mg/dl (70-99); POTASSIUM 3.5 mmol/L (3.5-5.1); SODIUM 139 mmol/L (136-145)
== END | disposition home or self-care (01) ==
LOC: C.LABBFT 10:20
PROVIDERS: ATTEND Internal Medicine Clinical Cardiac Electrophysiology
DX: Z01.818 Encounter for other preprocedural examination (principal)

== ENCOUNTER 2017-02-15 11:24 | Observation (INO) | payer OTHER ==
[~2017-02-15] VITALS: Ht 180.3 cm; Wt 98.7 kg
[~2017-02-15 11:24] MED LIST changes: +LACTATED RINGER'S 1000ML 1,000 ML IV SCH
[2017-02-15 12:25] VITALS: BP 202/95; PULSE 41; TEMP 37.1; O2SAT 96
--- NOTE | 2017-02-15 12:35 | History & Physical Bridge Note ---
H&P Re-Evaluation Bridge Note: I have examined the patient, reviewed the History & Physical and in the interval since the performance of the History & Physical I have noted the following changes of clinical significance:Permanent atrial fibrillation. Now symptomatic bradycardia. No Xarelto for 2 days.
--- NOTE | 2017-02-15 12:36 | Procedure Note ---
Pre-Mod Sedation Assessment General Date of Moderate Sedation: Feb 15, 2017. Pre-Sedation Airway Assessment Oral Cavity: WNL Able to Visualize Vocal Cords: No Short Thick Neck: No Smoking Status: Former Smoker Mallampati Classification: Class III ASA Classification: Class III Procedure Planning Contraindications-for Mod Sed: None Yes Notes The planned sedation has been discussed with the patient and consent obtained. I have identified the patient, determined the appropriateness of sedation and have assessed the patient immediately prior to the procedure. All medicine(s) and interventions are by my order.
[2017-02-15] MEDS: CEFAZOLIN IV 1,000 MG in DEXTROSE 5% 50ML IV SCH ×2 (13:59→14:40)
[2017-02-15] MEDS ORDERED: BUPIVACAINE 0.5 % 5 MG/1 ML MPF 30ML VIAL ONE (13:59)
[2017-02-15] MEDS ORDERED: LIDOCAINE HCL 1% 20 ML VIAL ONE (13:59)
[2017-02-15] MEDS ORDERED: BACITRACIN 50000 UNIT VIAL ONE (14:00)
[2017-02-15] MEDS ORDERED: FENTANYL CITRATE INJ 50 MCG/1 ML 2 ML VIAL ONE (14:11)
[2017-02-15] MEDS ORDERED: MIDAZOLAM HCL 5 MG/ML 1 ML VIAL ONE (14:11)
--- NOTE | 2017-02-15 14:58 | Procedure Note ---
Procedure Note Date of Service Feb 15, 2017. Procedure Note Procedure performed: IMplant of single chamber pacemaker Staff Core Fitter: Nelson Sepulveda MD Indication: The patient is 86-year-old gentleman with a history of permanent atrial fibrillation. He was noted on outpatient monitoring to have severe bradycardia at times with heart rates in the 20s. He has noticed significant limitations with activity currently in their froze felt to be a good candidate for implantation of her permanent pacemaker due to symptomatic non reversible sinus node dysfunction. The patient was informed of the risks benefits and alternatives to the intended procedure and she wished to proceed. He was taken to the electrophysiology suite in a fasting state. A preoperative antibiotic had been administered. The patient was monitored electrocardiographically throughout today's procedure and conscious sedation was administered per protocol. The left upper pectoral area is prepped and draped in usual sterile fashion. This area was anesthetized using subcutaneous menstruation of a xylocaine solution. An incision was made at this site and carried down to the prepectoralis fascia using sharp dissection. Electrocautery was also employed for dissection as well as for hemostasis. A device pocket was fashioned tissues above the pectoralis muscle. Subsequent to this maneuver the left axillary vein was accessed using modified Seldinger technique. A sheath was placed over aguidewire at this site and used to facilitate passage of the pacing lead to the right ventricular apex under fluoroscopic guidance. Adequate sensing and threshold parameters were obtained prior to Active fixation of the lead to the endocardial surface. The proximal portion of the lead was then sutured the prepectoral fascia using nonabsorbable suture. The device pocket was irrigated with antibiotic solution. The lead was then attached to the device. The device and lead was then placed in the pocket and pocket was closed in 3 layers of absorbable suture. Steri-Strips and sterile dressing were applied. The device was tested noninvasively prior to conclusion the procedure. The patient tolerated procedure well there no immediate complications. Equipment used: New pulse generator: Investment Sales Assistant [employer]. Model number:[id number] Serial number : [id number] Right ventricular lead: Investment Sales Assistant [employer]. Model number: 4076. Serial number: [id number] Measured data: Right ventricular lead: R-waves measured 10 mV. Pacing threshold 0.5 volts at 0.4 milliseconds with a pacing impedance of 663 Ohms Impression: Successful implantation of single-chamber permanent pacemaker
[2017-02-15] MEDS ORDERED: ACETAMINOPHEN 325 MG TAB PO PRN (15:00)
[2017-02-15 15:12] VITALS: BP 155/103; PULSE 72; TEMP 36.4; O2SAT 94; Ht 180.3 cm; Wt 98.7 kg
[2017-02-15] MEDS ORDERED: IV FLUIDS COMPLETED PRN (15:15)
[2017-02-15 15:50] VITALS: BP 155/91
[2017-02-15] MEDS ORDERED: PRAVASTATIN SOD 20 MG TAB PO SCH (17:00)
[2017-02-15] MEDS ORDERED: PNEUMOCOCCAL POLYSACCHARIDES 25 MCG/0.5 ML VIAL/SYR IM. ONE (18:00)
[2017-02-15] MEDS ORDERED: PNEUMOCOCCAL ADMINISTRATION CHARGE ONE (18:00)
[2017-02-15 20:50] VITALS: BP 194/95; PULSE 78; TEMP 36.5; O2SAT 97
[2017-02-15] MEDS: OXYCODONE HCL IR 5 MG TAB (IMMEDIATE RELEASE) PO PRN (20:56)
[2017-02-15] MEDS ORDERED: GABAPENTIN 300 MG CAP PO SCH (21:00)
[2017-02-15] MEDS: CEFAZOLIN IV 2,000 MG in DEXTROSE 5% 50ML 50 ML IV SCH (21:36)
[2017-02-15 23:05] VITALS: BP 132/75
[2017-02-15 23:53] VITALS: BP 145/71; PULSE 78; TEMP 36.9; O2SAT 96
[2017-02-16 04:08] VITALS: BP 159/89; PULSE 81; TEMP 36.4; O2SAT 98
[2017-02-16] MEDS: CEFAZOLIN IV 2,000 MG in DEXTROSE 5% 50ML 50 ML IV SCH (05:49)
[2017-02-16] MEDS ORDERED: LEVOTHYROXINE 75 MCG TAB PO SCH (06:00)
--- NOTE | 2017-02-16 06:58 | DIAGNOSTIC IMAGING REPORT ---
CHEST 2 VIEWS ROUTINE CLINICAL HISTORY: Pacemaker insertion. COMPARISON STUDY: Chest radiograph September 26, 2016. FINDINGS: There has been interval placement of a single lead left subclavian pacemaker. Lead tip projects over the right ventricle. Moderate cardiomegaly is unchanged. There is no pneumothorax. Linear bibasilar opacities suggest atelectasis. There is no evidence of pulmonary edema. IMPRESSION: No pneumothorax following placement of a single lead left subclavian pacemaker. Electronically signed by: Chris Green M.D. 02/16/2017 6:56 AM Dictated Date/Time: 02/16/2017 6:55 AM
[2017-02-16] MEDS: OXYCODONE HCL IR 5 MG TAB (IMMEDIATE RELEASE) PO PRN (07:35)
[2017-02-16 08:05] VITALS: BP_SYST 162; BP_SYST 171; BP_DIAS 100; BP_DIAS 115; PULSE 72; TEMP 36.8; O2SAT 96
[2017-02-16] MEDS ORDERED: LOSARTAN POTASSIUM 50 MG TAB PO SCH (09:00)
[2017-02-16] MEDS ORDERED: ALLOPURINOL 300 MG TAB PO SCH (09:00)
[2017-02-16] MEDS ORDERED: METOLAZONE 5 MG TAB PO SCH (09:00)
--- NOTE | 2017-02-16 09:04 | Discharge Instructions ---
Discharge Instructions Date of Service Feb 16, 2017. Admission Reason for Admission: Bradycardia Discharge Discharge Diagnosis / Problem: Implant of medtronic single chamber pacemaker Discharge Goals Goal(s): Improve function, Increase independence Activity Recommendations Activity Limitations: per Instructions/Follow-up section Lifting Limitations: none May Resume Sexual Activity: when tolerated Shower/Bathe: keep incision dry Driving or Machine Use: no limitations Keep wound dry and steri-strip intact until f/u next week. No lifting left arm above shoulder or behind neck for 6 weeks. . Instructions / Follow-Up Instructions / Follow-Up F/U next week as previously scheduled. Do not start Xarelto until Sunday Current Hospital Diet Patient's current hospital diet: AHA Diet (Heart Healthy), Diabetes Type 2 Diet Discharge Diet Recommended Diet: AHA Diet (Heart Healthy), Diabetes Type 2 Diet Procedures Procedures Performed: Implant of single chamber pacemaker. Pending Studies Studies pending at discharge: no Medical Emergencies . Who to Call and When: Medical Emergencies: If at any time you feel your situation is an emergency, please call 911 immediately. . Non-Emergent Contact Non-Emergency issues call your: [facility] . . "Provider Documentation" section prepared by Rocael Sepulveda. . VTE Core Measure Inpt VTE Proph given/why not?: Treatment not indicated
--- NOTE | 2017-02-16 09:15 | Discharge Summary ---
Discharge Summary Admission Date: Feb 15, 2017 at 14:56 Discharge Disposition: Home Primary Diagnosis: Bradycardia Secondary Diagnoses/Problems: Medical Problems: (1) Hypoxia Status: Acute Procedures: IMplant of Medtronic single chamber pacemaker Discharge Instructions Last Recorded Wt (Kilograms): 98.700 Activity Recommendations: shower/bathe limit Return to School/Work: no limitations Diet At Discharge: resume previous diet Allergies: Coded Allergies: No Known Allergies (Verified , ?, 02/15/17) Discharge Medications: Do not start Xarelto until Sunday02/18/2017 Home Health Services: none Special Care: Call your doctor if: * Temperature above 101 degrees * Pain not relieved by pain medicine ordered * There is increased drainage or redness from any incision * You have any unanswered questions or concerns. Avoid all tobacco products. If you need help to stop smoking, call [place]'s FREE QUITLINE at . This is a free call. Admission HPI Patient with documented bradycardia and permanent AF. Now with symptoms of exercise intolerance and fatigue. Hospital Course Patient underwent implant of a pacemaker on the day of admission. No complications. On the day of discharge he was feeling well. Minimal pain at the implant site. No hematoma. CXR demonstrated good lead position without PTX. Interrogation rvealed good lead function. Total time spent on discharge = This includes examination of the patient, discharge planning, medication reconciliation, and communication with other providers.
[2017-02-16 09:55] VITALS: BP 162/115; PULSE 72; TEMP 36.8; O2SAT 96
[2017-02-16 11:30] VITALS: BP 128/91; PULSE 74; TEMP 36.7; O2SAT 97
== END 2017-02-16 11:23 | disposition home or self-care (01) ==
LOC: C.ACU 11:24 → ENRESERV 14:28 → C.2E 14:56
PROVIDERS: ADMIT Internal Medicine Clinical Cardiac Electrophysiology; ATTEND Internal Medicine Clinical Cardiac Electrophysiology
DX: R00.1 Bradycardia, unspecified (principal); I48.2 Chronic atrial fibrillation; I10 Essential (primary) hypertension; E03.9 Hypothyroidism, unspecified; E11.9 Type 2 diabetes mellitus without complications; E78.5 Hyperlipidemia, unspecified; M10.9 Gout, unspecified; G62.9 Polyneuropathy, unspecified; M48.061 Spinal stenosis, lumbar region without neurogenic claudication; M17.10 Unilateral primary osteoarthritis, unspecified knee; G47.30 Sleep apnea, unspecified; Z85.46 Personal history of malignant neoplasm of prostate; Z79.01 Long term (current) use of anticoagulants

== ENCOUNTER → 2017-05-01 | Outpatient (CLI) | payer OTHER ==
[~2017-05-01] MED LIST changes: -DEXT30TA7 PO; -LACTATED RINGER'S 1000ML 1,000 ML IV SCH; -METO5TAB5 PO
[2017-05-01 12:24] LABS: BASO % 0.6 %; BASO ABS # 0.04 K/uL (0-0.2); COMPLETE YES; EOS % 5.8 %; IG% 0.5 %; LYMPH % 22.3 %; LYMPH ABS # 1.43 K/uL (1.2-3.4); MEAN CELL VOLUME 92.1 fL (80-100); MEAN CORPUSCULAR HEMOGLOBIN 30.9 pg (25-34); MEAN CORPUSCULAR HGB CONC 33.6 g/dl (32-36); MEAN PLATELET VOLUME 10.4 fL (7.4-10.4); MONO % 11.3 %; NEUT % 59.5 %; PLATELET COUNT 158 K/uL (130-400); RED BLOOD COUNT 4.56 M/uL (4.7-6.1)
[2017-05-01 12:44] LABS: BLOOD UREA NITROGEN 28 mg/dl (7-18); BUN/CREATININE RATIO 22.2 (10-20); CALCIUM 10.1 mg/dl (8.5-10.1); CARBON DIOXIDE 29 mmol/L (21-32); CHLORIDE 106 mmol/L (98-107); CREATININE 1.26 mg/dl (0.60-1.40); GLUCOSE 90 mg/dl (70-99); POTASSIUM 3.6 mmol/L (3.5-5.1); SODIUM 139 mmol/L (136-145)
[2017-05-01 12:51] LABS: ESTIMATED AVERAGE GLUCOSE 140 mg/dl; HA1C FLAG Normal (Normal)
[2017-05-01 12:55] LABS: CHOLESTEROL 152 mg/dl (0-200); CHOLESTEROL/HDL RATIO 3.8; HDL CHOLESTEROL 40 mg/dl; LDL CHOLESTEROL CALCULATED 87 mg/dl; TRIGLYCERIDES 127 mg/dl (0-150); VERY LOW DENSITY LIPOPROT CALC 25 mg/dl
== END | disposition home or self-care (01) ==
LOC: C.LABBFT 07:33
PROVIDERS: ATTEND Internal Medicine
DX: E11.9 Type 2 diabetes mellitus without complications (principal)

== ENCOUNTER → 2017-07-07 | Outpatient (CLI) | payer OTHER ==
[~2017-07-07] MED LIST changes: +DILT-115 PO; +METO5TAB25 PO; +SULF800T23 PO
== END | disposition home or self-care (01) ==
LOC: C.LABSPEC 11:54
PROVIDERS: ATTEND Family Medicine
DX: R31.0 Gross hematuria (principal)

== ENCOUNTER 2017-07-08 07:12 | Emergency (ER) | payer OTHER ==
[~2017-07-08] VITALS: Ht 180.3 cm; Wt 101.6 kg
[~2017-07-08 07:12] MED LIST changes: -DILT-115 PO; -METO5TAB25 PO; -SULF800T23 PO
[2017-07-08 07:13] VITALS: TEMP 36.3; Ht 180.3 cm; Wt 101.6 kg
--- NOTE | 2017-07-08 07:56 | EMERGENCY ROOM VISIT NOTE ---
History Report prepared by Kandis: Carli Jenkins Under the Supervision of: Dr. Alma Chung M.D. First contact with patient: 07:18 Chief Complaint: URINARY SYMPTOMS Stated Complaint: BLOOD IN URINE Nursing Triage Summary: Noticed blood in urine yesterday. Went to walk in clinic and was told to stop xarelto. Recently started a new BP med by Dr. Najera and thought it may be related to this. Pt called daughter this AM and stated he had lots of bright red blood in urine and wanted to come to ED. History of Present Illness The patient is an 86 year old male who presents to the Emergency Room with complaints of worsening hematuria since yesterday. He is accompanied by his daughter. He reports the hematuria started yesterday morning, so he went to his doctors office and was prescribed Bactrim and told to stop his daily Xarelto. This morning the hematuria worsened, and he developed clots that were "bright red" in color, so he decided to come to the ED. He denies any recent trauma to his pelvis or urinary system. He has no history of kidney stones. He denies any recent dysuria or abdominal pain. The patient notes he was placed on diltiazem by Dr. Najera recently and thought it may be related to his symptoms. His daughter reports he has a previous history of prostate issues back in 2003, and used to follow with Dr. Garcia of [facility]. Source of History: patient, family (daughter) Onset: yesterday Position: pelvis (urinary system) Symptom Intensity: hematuria Timing: worsening Associated Symptoms: No abdominal pain Review of Systems See HPI for pertinent positives & negatives. A total of 10 systems reviewed and were otherwise negative. Past Medical & Surgical Medical Problems: (1) Acute bronchitis (2) Atrial fibrillation (3) Bradycardia (4) Diabetes (5) Shingles Family History No significant family history Social History Smoking Status: Former Smoker Alcohol Use: none Drug Use: none Marital Status: Housing Status: lives with family Occupation Status: retired Current/Historical Medications Scheduled Allopurinol (Zyloprim), 300 MG PO DAILY Aspirin (Aspirin Ec), 81 MG PO DAILY Cholecalciferol (Vitamin D), 1,000 INTER.UNIT PO DAILY Diltiazem Hcl Ext Rel (Tiazac), 240 MG PO DAILY Gabapentin (Gabapentin), 300 MG PO HS Glipizide (Glipizide Er), 1 TAB PO BID Levothyroxine Sodium (Levothyroxine Sodium), 75 MCG PO DAILY Losartan Potassium (Cozaar), 100 MG PO DAILY Magnesium Chloride (Slow-Mag Tab), 64 MG PO BID Metolazone (Zaroxolyn), 5 MG PO DAILY Multivitamin (Multivitamin), 1 TAB PO DAILY Pravastatin Sodium (Pravachol), 20 MG PO DAILY Rivaroxaban (Xarelto), 20 MG PO DAILY Sulfamethoxazole-Trimethoprim (Bactrim Ds 800MG/160MG), 1 TAB PO BIDM Scheduled PRN Acetaminophen (Tylenol), 1,000 MG PO BID PRN for Pain Docusate Sodium (Docusate Sodium), 100 MG PO 2XWK PRN for Constipation Allergies Coded Allergies: No Known Allergies (Verified , ?, 07/08/17) Physical Exam Vital Signs Date Time Temp Pulse Resp B/P (MAP) Pulse Ox O2 Delivery O2 Flow Rate FiO2 07/08/17 10:07 72 17 154/87 96 07/08/17 09:46 72 17 154/87 96 07/08/17 08:40 64 17 140/83 96 Room Air 07/08/17 07:13 36.3 90 18 211/99 97 Room Air Physical Exam Vital signs reviewed. General: Well-appearing 86 year old male, in no significant distress. HEENT: No scleral icterus, PERRLA, neck supple. Atraumatic. Cardiovascular: Irregular rate controlled heart-rate, no extra sounds. Pulmonary: Clear to auscultation bilaterally, normal work of breathing. Abdomen: Soft, nontender, nondistended, positive bowel sounds. No significant bladder distension appreciated. Musculoskeletal: Atraumatic, no peripheral edema. No CVA tenderness. Neurologic: Patient awake alert and oriented x 3 Skin: Warm, dry, no rash Medical Decision & Procedures ER Provider Diagnostic Interpretation: Radiology results as stated below per my review and radiologist interpretation: ULTRASOUND KIDNEYS AND BLADDER CLINICAL HISTORY: Hematuria. COMPARISON STUDY: Renal ultrasound dated 12/24/2014. TECHNIQUE: Real-time, grayscale, and color flow sonography of the kidneys and bladder is performed. Images are reviewed in the transverse and longitudinal planes. FINDINGS: Kidneys: The kidneys are atrophic. The right kidney measures 12.4 cm in length and the left kidney measures 12.0 cm There is no hydronephrosis. No shadowing renal calculi are identified. Small bilateral renal cysts measure up to 1.4 cm. There is no sonographic evidence of solid mass lesion. No perinephric fluid is identified. Bladder: The prostate gland is markedly enlarged and heterogeneous, measuring 6.5 cm in transverse diameter. There is median lobe hypertrophy. The bladder is decompressed. The bladder wall appears thickened and trabeculated suggesting chronic outlet obstruction. Bilateral ureteral jets were seen. IMPRESSION: 1. The kidneys are atrophic and without hydronephrosis. 2. The prostate gland is markedly enlarged and there is evidence of chronic bladder outlet obstruction. Electronically signed by: Ham Mayer M.D. 07/08/2017 8:37 AM Laboratory Results 07/08/17 08:00 Red Blood Count 4.82, Mean Corpuscular Volume 90.0, Mean Corpuscular Hemoglobin 31.1, Mean Corpuscular Hemoglobin Concent 34.6, Mean Platelet Volume 9.5, Neutrophils (%) (Auto) 74.2, Lymphocytes (%) (Auto) 15.1, Monocytes (%) (Auto) 7.3, Eosinophils (%) (Auto) 2.6, Basophils (%) (Auto) 0.5, Neutrophils # (Auto) 5.67, Lymphocytes # (Auto) 1.15, Monocytes # (Auto) 0.56, Eosinophils # (Auto) 0.20, Basophils # (Auto) 0.04 07/08/17 08:00 Test 07/08/17 07:20 07/08/17 08:00 Urine Color RED Urine Appearance CLOUDY (CLEAR) Urine pH 6.5 (4.5-7.5) Urine Specific [place] 1.015 (1.000-1.030) Urine Protein 2+ (NEG) Urine Glucose (UA) NEG (NEG) Urine Ketones NEG (NEG) Urine Occult Blood 3+ (NEG) Urine Nitrite NEG (NEG) Urine Bilirubin NEG (NEG) Urine Urobilinogen NEG (NEG) Urine Leukocyte Esterase NEG (NEG) Urine RBC >30 /hpf (0-4) Urine WBC 10-30 /hpf (0-5) Urine Epithelial Cells 5-10 /lpf (0-5) Urine Bacteria NEG (NEG) White Blood Count 7.64 K/uL (4.8-10.8) Red Blood Count 4.82 M/uL (4.7-6.1) Hemoglobin 15.0 g/dL (14.0-18.0) Hematocrit 43.4 % (42-52) Mean Corpuscular Volume 90.0 fL (80-100) Mean Corpuscular Hemoglobin 31.1 pg (25-34) Mean Corpuscular Hemoglobin Concent 34.6 g/dl (32-36) Platelet Count 163 K/uL (130-400) Mean Platelet Volume 9.5 fL (7.4-10.4) Neutrophils (%) (Auto) 74.2 % Lymphocytes (%) (Auto) 15.1 % Monocytes (%) (Auto) 7.3 % Eosinophils (%) (Auto) 2.6 % Basophils (%) (Auto) 0.5 % Neutrophils # (Auto) 5.67 K/uL (1.4-6.5) Lymphocytes # (Auto) 1.15 K/uL (1.2-3.4) Monocytes # (Auto) 0.56 K/uL (0.11-0.59) Eosinophils # (Auto) 0.20 K/uL (0-0.5) Basophils # (Auto) 0.04 K/uL (0-0.2) RDW Standard Deviation 47.7 fL (36.4-46.3) RDW Coefficient of Variation 14.6 % (11.5-14.5) Immature Granulocyte % (Auto) 0.3 % Immature Granulocyte # (Auto) 0.02 K/uL (0.00-0.02) Prothrombin Time 11.6 SECONDS (9.0-12.0) Prothromb Time International Ratio 1.1 (0.9-1.1) Activated Partial Thromboplast Time 29.8 SECONDS (21.0-31.0) Partial Thromboplastin Ratio 1.1 Anion Gap 7.0 mmol/L (3-11) Est Creatinine Clear Calc Drug Dose 45.3 ml/min Estimated GFR () 51.5 Estimated GFR (Non- 44.4 BUN/Creatinine Ratio 17.4 (10-20) Calcium Level 10.7 mg/dl (8.5-10.1) Total Bilirubin 0.6 mg/dl (0.2-1) Direct Bilirubin 0.2 mg/dl (0-0.2) Aspartate Amino Transf (AST/SGOT) 24 U/L (15-37) Alanine Aminotransferase (ALT/SGPT) 34 U/L (12-78) Alkaline Phosphatase 72 U/L (45-117) Total Protein 8.2 gm/dl (6.4-8.2) Albumin 4.1 gm/dl (3.4-5.0) Laboratory results per my review. ED Course 0750: Past medical records reviewed. The patient was evaluated in room A10. A complete history and physical examination was performed. 0945: I reevaluated the patient. I discussed her results and discharge instructions and she verbalized complete understanding and agreement. 1000: Cozaar Tab 100 mg PO, Diltiazem HCl 240 mg PO. Medical Decision Differential diagnosis: Differential diagnoses considered include bladder mass, kidney stone, hemorrhagic cystitis, prostatitis and medication side effect. This patient was evaluated and appeared to be in no significant distress. IV access was obtained and laboratory work was drawn. Ultrasound of the kidneys and bladder was performed and reveals evidence of chronic bladder obstruction without evidence of hydronephrosis or mass. Patient's prostate is markedly enlarged. He does have a history of prostate cancer status post radiation therapy. Patient may be having a hemorrhagic prostatitis versus hemorrhagic cystitis. Urine will be sent for culture. He was placed on Bactrim as an outpatient and was advised to continue this medication. Patient is on Xarelto and aspirin for atrial fibrillation, he will stop the aspirin for the time being and continue the Xarelto. If he continues to bleed after one to 2 days of antibiotics, he will stop the Xarelto as well. The patient will follow-up with his PCP this week and urology for outpatient management. He will return to the ER for worsening of symptoms or any medical concerns. Medication Reconcilliation Current Medication List: was personally reviewed by me Blood Pressure Screening Patient's blood pressure: Elevated blood pressure Blood pressure disposition: Referred to PCP Impression Primary Impression: Hemorrhagic cystitis Additional Impression: Bladder outlet obstruction Scribe Attestation The scribe's documentation has been prepared under my direction and personally reviewed by me in its entirety. I confirm that the note above accurately reflects all work, treatment, procedures, and medical decision making performed by me. Departure Information Dispostion Home / Self-Care Referrals Bora Najera M.D. (PCP) Patient Instructions My [facility] Additional Instructions Diagnosis: Bladder outlet obstruction, hemorrhagic cystitis Continue the Bactrim as prescribed. Continue Xarelto as prescribed. Hold the aspirin for 7 days. If bleeding continues or worsens, stop the Xarelto until you are reevaluated by your physician. Contact urology at the number below for reevaluation within the next 1-2 weeks. Return to the emergency department for worsening of symptoms or any medical concerns. Problem Qualifiers
[2017-07-08] MEDS ORDERED: METO5TAB25 PO (07:59)
[2017-07-08] MEDS ORDERED: SULF800T23 PO (07:59)
[2017-07-08] MEDS ORDERED: DILT-115 PO (07:59)
[2017-07-08] MEDS ORDERED: DILTIAZEM HCL 120 MG EXT REL CAP PO STA (08:06)
[2017-07-08] MEDS ORDERED: LOSARTAN POTASSIUM 50 MG TAB PO STA (08:06)
[2017-07-08 08:08] LABS: BASO % 0.5 %; BASO ABS # 0.04 K/uL (0-0.2); EOS % 2.6 %; HEMATOCRIT 43.4 % (42-52); IG# 0.02 K/uL (0.00-0.02); LYMPH % 15.1 %; LYMPH ABS # 1.15 K/uL (1.2-3.4); MEAN CORPUSCULAR HEMOGLOBIN 31.1 pg (25-34); MEAN CORPUSCULAR HGB CONC 34.6 g/dl (32-36); MEAN PLATELET VOLUME 9.5 fL (7.4-10.4); MONO % 7.3 %; MONO ABS # 0.56 K/uL (0.11-0.59); NEUT % 74.2 %; NEUT ABS # 5.67 K/uL (1.4-6.5); PLATELET COUNT 163 K/uL (130-400); RED CELL DISTRIBUTION WIDTH CV 14.6 % (11.5-14.5); RED CELL DISTRIBUTION WIDTH SD 47.7 fL (36.4-46.3); WHITE BLOOD COUNT 7.64 K/uL (4.8-10.8)
[2017-07-08 08:30] LABS: ALBUMIN 4.1 gm/dl (3.4-5.0); CALCIUM 10.7 mg/dl (8.5-10.1); CREATININE 1.42 mg/dl (0.60-1.40); POTASSIUM 3.9 mmol/L (3.5-5.1)
[2017-07-08 08:33] LABS: TOTAL PROTEIN 8.2 gm/dl (6.4-8.2)
[2017-07-08 08:35] LABS: INR 1.1 (0.9-1.1); PTT PATIENT 29.8 SECONDS (21.0-31.0)
--- NOTE | 2017-07-08 08:39 | DIAGNOSTIC IMAGING REPORT ---
ULTRASOUND KIDNEYS AND BLADDER CLINICAL HISTORY: Hematuria. COMPARISON STUDY: Renal ultrasound dated 12/24/2014. TECHNIQUE: Real-time, grayscale, and color flow sonography of the kidneys and bladder is performed. Images are reviewed in the transverse and longitudinal planes. FINDINGS: Kidneys: The kidneys are atrophic. The right kidney measures 12.4 cm in length and the left kidney measures 12.0 cm There is no hydronephrosis. No shadowing renal calculi are identified. Small bilateral renal cysts measure up to 1.4 cm. There is no sonographic evidence of solid mass lesion. No perinephric fluid is identified. Bladder: The prostate gland is markedly enlarged and heterogeneous, measuring 6.5 cm in transverse diameter. There is median lobe hypertrophy. The bladder is decompressed. The bladder wall appears thickened and trabeculated suggesting chronic outlet obstruction. Bilateral ureteral jets were seen. IMPRESSION: 1. The kidneys are atrophic and without hydronephrosis. 2. The prostate gland is markedly enlarged and there is evidence of chronic bladder outlet obstruction. Electronically signed by: Ham Mayer M.D. 07/08/2017 8:37 AM Dictated Date/Time: 07/08/2017 8:36 AM
[2017-07-08 10:07] VITALS: BP 154/87; PULSE 72; O2SAT 96
== END 2017-07-08 10:12 | disposition home or self-care (01) ==
LOC: C.EDB 07:12 → C.EDA 10:12
DX: N30.91 Cystitis, unspecified with hematuria (principal); N32.0 Bladder-neck obstruction; R03.0 Elevated blood-pressure reading, without diagnosis of hypertension; N40.1 Benign prostatic hyperplasia with lower urinary tract symptoms; E11.9 Type 2 diabetes mellitus without complications; I48.91 Unspecified atrial fibrillation; Z87.891 Personal history of nicotine dependence; Z79.82 Long term (current) use of aspirin; Z79.84 Long term (current) use of oral hypoglycemic drugs; Z85.46 Personal history of malignant neoplasm of prostate

== ENCOUNTER → 2017-08-10 | Outpatient (CLI) | payer OTHER ==
[~2017-08-10] MED LIST changes: +DILT-115 PO; -GUAI-13; -HYDR-4717 PO; +METO5TAB25 PO; -NZRCR TD; +SULF800T23 PO
== END | disposition home or self-care (01) ==
LOC: C.PATHSPEC 15:26
PROVIDERS: ATTEND Urology
DX: C61 Malignant neoplasm of prostate (principal)

== ENCOUNTER → 2017-08-16 | Outpatient (CLI) | payer OTHER ==
[~2017-08-16] VITALS: Ht 180.3 cm; Wt 103.0 kg
[2017-08-16 14:49] VITALS: BP 190/88; PULSE 64; Ht 180.3 cm; Wt 103.0 kg
== END | disposition home or self-care (01) ==
LOC: C.NEUR 14:21
PROVIDERS: ATTEND Physician Assistant
DX: G47.30 Sleep apnea, unspecified (principal); I48.91 Unspecified atrial fibrillation; M10.9 Gout, unspecified; E78.00 Pure hypercholesterolemia, unspecified; I10 Essential (primary) hypertension; M17.10 Unilateral primary osteoarthritis, unspecified knee; Z95.0 Presence of cardiac pacemaker; Z85.46 Personal history of malignant neoplasm of prostate; E11.9 Type 2 diabetes mellitus without complications; Z96.659 Presence of unspecified artificial knee joint; Z79.82 Long term (current) use of aspirin; Z79.84 Long term (current) use of oral hypoglycemic drugs; Z79.01 Long term (current) use of anticoagulants

== ENCOUNTER → 2017-08-24 | Outpatient (CLI) | payer OTHER ==
[2017-08-24 17:19] LABS: BASO % 0.3 %; BASO ABS # 0.03 K/uL (0-0.2); EOS % 3.7 %; EOS ABS # 0.32 K/uL (0-0.5); HEMOGLOBIN 14.6 g/dL (14.0-18.0); IG# 0.03 K/uL (0.00-0.02); LYMPH % 20.4 %; LYMPH ABS # 1.77 K/uL (1.2-3.4); MEAN CELL VOLUME 91.1 fL (80-100); MEAN CORPUSCULAR HEMOGLOBIN 30.9 pg (25-34); MONO % 9.2 %; NEUT % 66.1 %; NEUT ABS # 5.71 K/uL (1.4-6.5); PLATELET COUNT 188 K/uL (130-400); RED CELL DISTRIBUTION WIDTH CV 14.9 % (11.5-14.5); RED CELL DISTRIBUTION WIDTH SD 50.2 fL (36.4-46.3); WHITE BLOOD COUNT 8.66 K/uL (4.8-10.8)
[2017-08-24 17:44] LABS: BLOOD UREA NITROGEN 32 mg/dl (7-18); CALCIUM 10.6 mg/dl (8.5-10.1); CARBON DIOXIDE 29 mmol/L (21-32); CREATININE 1.32 mg/dl (0.60-1.40); GLUCOSE 125 mg/dl (70-99); POTASSIUM 3.2 mmol/L (3.5-5.1); SODIUM 137 mmol/L (136-145)
[2017-08-25 07:06] LABS: HEMOGLOBIN A1C 6.7 % (4.5-5.6)
== END | disposition home or self-care (01) ==
LOC: C.LAB1850 16:10
PROVIDERS: ATTEND Internal Medicine
DX: E11.9 Type 2 diabetes mellitus without complications (principal)

== ENCOUNTER 2019-03-07 07:02 | Observation (INO) ==
[2019-03-07] MEDS ORDERED: ASPIRIN 81 MG CHEW ONE (07:47)
--- NOTE | 2019-03-07 07:53 | History & Physical Bridge Note ---
Date of Service March 07, 2019 History & Physical Bridge Note I have examined the patient, reviewed the History & Physical and in the interval since the performance of the History & Physical I have noted the following changes of clinical significance: no changes noted
--- NOTE | 2019-03-07 07:55 | Pre Anesthesia Assessment ---
Date of Service March 07, 2019 Pre Sedation Assessment Vital Signs Temp Pulse Resp BP Pulse Ox 03/07/19 07:13 36.7 C 103 H 16 147/109 H 99 Cardiovascular + regular rate Respiratory + respiratory effort normal Pre-Sedation Airway Assessment Smoking Status: Former smoker Hx Sleep Apnea: Yes Hx Difficult Intubation: No Short, Thick Neck: No Thyromental Distance: > or= 3.5 Finger Breadths Oral Cavity: + Dentures Mallampati Class: IV ASA: ASA3 NPO Status Date of Last Intake of Fluids: 03/06/19 Time of Last Intake of Fluids: 20:00 Date of Last Intake of Solid Food: 03/06/19 Time of Last Intake of Solid Foods: 20:00 Procedure Planning Contraindications for Sedation: none Current Medications Reviewed: Yes Notes The planned sedation has been discussed with the patient. Informed Consent was obtained. I have identified the patient, determined the appropriateness of sedation and have assessed the patient immediately prior to the procedure. All medicine(s) and interventions are by my order.
[2019-03-07] MEDS ORDERED: HEPARIN (PORCINE) 1000 UNIT/ML 10 ML (CATH LAB USE ONLY) ONE ×2 (08:00→09:41)
[2019-03-07] MEDS ORDERED: NiCARDipine HCL INJ 2.5 MG/ML 10 ML AMP ONE (08:00)
[2019-03-07] MEDS ORDERED: NITROGLYCERIN/D5W 100MCG/ML 20ML SYR ONE (08:01)
[2019-03-07] MEDS ORDERED: fentaNYL citrate 100 MCG/2 ML VIAL ONE (08:01)
[2019-03-07] MEDS ORDERED: MIDAZOLAM HCL 1 MG/ML 2ML VIAL ONE ×2 (08:01→09:29)
--- NOTE | 2019-03-07 08:43 | Cardiac Catheterization ---
[facility] Data: Smash Piecer Cardiac Status Clinical evaluation leading to the procedure CAD Presenation: Stable angina Diagnostic Physicians Name: Nelson Sepulveda MD Closure Device Recommendations: PCI without planned CABG Cardiac Cath Procedure Full Procedure Date March 07, 2019 Pre-Procedure Diagnosis Pre-Procedure Diagnosis: Angina and Positive Stress Test AUC Score AUC Score: 7 Post-Procedure Diagnosis Post-Procedure Diagnosis: Moderate CAD Procedure(s) Performed Procedure(s) Performed: Coronary Angiography and Left Heart Cath Excel Analyst Nelson Sepulveda MD Child Care Lead Teacher(s) none Estimated Blood Loss Estimated Blood Loss: 5cc Medication(s) Medication(s): Aspirin, Fentanyl, Heparin, Nicardipine, Nitroglycerin and Versed Summary of Findings Equipment used: 5 [place] 4 Coronary angiography: Left main: Left main was short and bifurcated into the left anterior descending and left circumflex arteries. There did appear to be some mild ostial disease, but no other obstructive lesions. Left anterior descending: Left anterior descending was normal caliber in its proximal segment but tapered significantly in the distal portion. It did not appear to reach the apex. It produced a large first diagonal with obstructive disease in its mid and distal portion. It produced a second large diagonal without evidence of obstructive disease. Left circumflex: Left circumflex artery was occluded immediately following the bifurcation of the first OM branch. The first OM was quite high in its takeoff. Approximately 50% ostial lesion and some luminal irregularities throughout the remainder of the vessel. It was a very large vessel without other obstructive disease. Right coronary: Right coronary artery was a large dominant vessel producing the PDA. The PL branch was very small. He was ectatic in its proximal portion. There was a discrete stenosis in the proximal and mid portions of the vessel compromising 99% of the lumen. Conclusions: Right dominant coronary system Obstructive coronary disease involving the left circumflex, right coronary ar heidi and first diagonal branch Normal left ventricular end-diastolic pressures No evidence of aortic stenosis Hemodynamics Rest Ao:: 95/50 mmHg Final Ao: 122/63 mmHg LV: 85/2 mmHg left ventricular end-diastolic pressure of 7 mmHg Recommendations Recommendations: PCI without planned CABG Radiation Exposure (mGy) q Contrast (mls) q Procedural Complication(s) None Disposition PCU I attest to the content of the Intraoperative Record and any orders documented therein. Any exceptions are noted below.
[2019-03-07] MEDS ORDERED: CLOPIDOGREL BISULFATE 300 MG TAB ONE (10:46)
--- NOTE | 2019-03-07 11:01 | Post Anesthesia Assessment ---
Date of Service March 07, 2019 Post Sedation Assessment Vital Signs Temp Pulse Resp BP Pulse Ox 03/07/19 10:50 105 H 20 136/83 96 03/07/19 10:45 103 H 20 135/80 96 03/07/19 07:13 98.1 F 103 H 16 147/109 H 99 Recovery Score Activity: Moves 4 extremities Respiration: Deep Breath/Cough Circulation: +/-20% PreAnes Value Consciousness: Fully Awake Oxygen Saturation: O2 needed for >90% Discharge Sedation Level of Care: Fast Track Phase II Post Sedation Plan On clinical assessment, the patient appears to have tolerated the sedation without complications. Patient is recovering as anticipated. Patient will continue to be monitored by nursing and may be discharged when sedation discharge criteria are met per below protocol. Upon Completions of procedure and additional 15 minutes continue every 5 minute vital signs and the P.A.R. score; then discharge to a Phase I or Fast Track to Phase II per the following guidelines: * Discharge Patient to appropriate Phase II area if PAR is 8 or greater or return to pre- procedure baseline. The post - procedure orders will be as directed. * If PAR score is less than 8 or not return to pre-procedure baseline then patient will follow Phase I monitoring till PAR is reached for Phase II. The Phase I may be done in procedure room or may call to secure a Phase I area. * If naloxone or flumazenil are used for reversal, hold in Phase I for continued monitoring from when last reversal dose was given for a minimum of 60 minutes or longer pending the nurse and/or physician discretion of patient condition before discharge to Phase II. Please call the Sedation Physician to re-evaluate and complete post-note for discharge to Phase II area. Do NOT discharge from procedure sedation or Phase 1 until post- sedation evaluation note is complete by procedure /sedation MD Sedation Discharge Instructions to be given to the patient at discharge to home.
[2019-03-07] MEDS ORDERED: ACETAMINOPHEN 325 MG TAB PO PRN (11:05)
[2019-03-07] MEDS ORDERED: ONDANSETRON INJ 2 MG/ML 2 ML VIAL IV PRN (11:05)
--- NOTE | 2019-03-07 11:05 | Cardiac Catheterization ---
[facility] Data: Band Builder Cardiac Status Clinical evaluation leading to the procedure CAD Presenation: Positive Stress Test and Stable angina Anginal Classification: CCS III Heart Failure: No Cardiogenic Shock within 24 Hours: No Cardiac Arrest within 24 Hours: No Imaging Studies Past 6 Months: Yes Stress Studies Past 6 Months: Yes Stress Echocardiogram: Yes - Positive Diagnostic Physicians Name: Nelson Schulz MD Status: Elective Closure Device Closure Device: Radial Band Recommendations: PCI without planned CABG PCI Indication: + Stress Test and Angina despite med therapy Lesion Segment Name: mid RCA Culprit Artery: Yes Stenosis Prior to Rx (%): 90 Chronic Total Occlusion: No IVUS: No FFR: No Pre-Procedure ASCENCION Flow: 3 Previously Treated Lesion: No Lesion Complexity: Non-High/Non-C Lesion Length (mm): 15 Thrombus Present: No Bifurcation Lesion: No Guidewire Across Lesion: Stenosis Post-Procedure (%): 0 Post-Procedure ASCENCION Flow: 3 Devices(s) Deployed: Yes Yes Intraprocedure Events Significant Disection: No Perforation: No Cardiac Cath Procedure Full Procedure Date March 07, 2019 Pre-Procedure Diagnosis Pre-Procedure Diagnosis: Angina and Positive Stress Test AUC Score AUC Score: 7 Post-Procedure Diagnosis Post-Procedure Diagnosis: Severe CAD and Successful PCI Procedure(s) Performed Procedure(s) Performed: Coronary Angiography and Drug Eluting Stent Turntable Operator Nelson Schulz MD Skilled Nursing Case Manager(s) Jesus Estimated Blood Loss Estimated Blood Loss: 15 Medication(s) Medication(s): Clopidogrel, Fentanyl, Heparin, Nicardipine, Nitroglycerin and Versed Summary of Findings Indication: Ischemic cardiomyopathy, exertional chest pain Access: 6 Fr right radial artery Catheters: EBU 3.5 guide, AR-1 guide, telescope Findings: For full details of patient's coronary angiography please cath report dictated by Dr. Sepulveda. Briefly, patient found to have severe vessel disease including a 100% occlusion of his mid circumflex and sequential 90% blockages in his mid RCA. Some question as to the chronicity of mid circumflex lesion and decision made to probe mid circumflex occlusion with plan to likely fix mid RCA. -- PCI -- Antithrombotic therapy: Heparin, clopidogrel Procedure: Left main cannulated with EBU 3.5 guide Attempted to wire across mid circumflex occlusion with co pilot 50 wire. Lesion behaved like chronic occlusion wire and catheter removed. RCA cannulated with AR-1 guide Squaring Shear Operator 50 wire passed across lesions into distal vessel Mid RCA lesions predilated with 2.0 and 3.0 compliant balloons With the aid of a telescope guide neuroscientist, dilated latemid lesion stented with 3.0 x 12 mm Shay Earlymid RCA lesion stented with 4.0 x 12 m [place] Stents post-dilated with stent balloon IC vasodilators administered for spasm Post procedure ASCENCION 3 flow, stent well expanded with minimal residual stenosis and no apparent cardiac complications. Arterial Closure: TR band Summary: 1. Severe multi-vessel coronary artery disease -Chronic mid circumflex occlusion Sequential 90% mid RCA lesions 2. Successful PCI of mid RCA lesions with 2 nonoverlapping drug-eluting stents (4.0 x 12, 3.0 x 12 Shay). Recommendations: To PCU for continued monitoring Loaded with clopidogrel 600 mg in catheter Continue dual therapy with NOAC and clopidogrel for at least 6 months Continue statin, and ASCVD risk factor modification Consult cardiac Rehab Hemodynamics Rest Ao:: 114/68/70 Final Ao: 101/55/71 LV: 85/7 Recommendations Recommendations: PCI without planned CABG Specimens Specimens: None Radiation Exposure (mGy) 3811 Contrast (mls) 130 Fluids (cc crystalloids) Fluids (cc crystalloids): 200 Anesthesia Moderate Procedural Complication(s) None Disposition PCU I attest to the content of the Intraoperative Record and any orders documented therein. Any exceptions are noted below.
[2019-03-07] MEDS ORDERED: GLUCOSE 40% GEL 15 GM TUBE PO PRN (11:10)
[2019-03-07] MEDS ORDERED: GLUCAGON FOR INJ 1 MG VIAL SQ PRN (11:10)
[2019-03-07] MEDS ORDERED: GLUCOSE 10 TABS/TUBE PO PRN (11:10)
[2019-03-07] MEDS ORDERED: DEXTROSE 50% 50 ML SYRINGE IV PRN (11:10)
[2019-03-07] MEDS ORDERED: CARBOHYDRATES FOR HYPOGLYCEMIA PO PRN (11:10)
[2019-03-07] MEDS ORDERED: SODIUM CHLORIDE 0.9% 1000ML 1,000 ML IV SCH (11:45)
[2019-03-07] MEDS: INSULIN ASPART 100 UNITS/ML 3 ML PEN SC SCH ×3 (11:52→20:43)
[2019-03-07] MEDS: GABAPENTIN 300 MG CAP PO SCH (20:41)
[2019-03-07] MEDS: MAGNESIUM CHLORIDE 64MG DELAYED REL TAB PO SCH (20:42)
[2019-03-07] MEDS: METOPROLOL SUCC 50MG EXT REL TAB PO SCH (20:42)
[2019-03-07] MEDS ORDERED: LOSARTAN POTASSIUM 50 MG TAB PO SCH (21:00)
[2019-03-07] MEDS ORDERED: PRAVASTATIN SOD 20 MG TAB PO SCH (21:00)
[2019-03-07] MEDS ORDERED: RIVAROXABAN 20 MG TAB PO SCH (21:00)
[2019-03-08 06:03] LABS: Basophils # (auto) 0.03 K/uL (0-0.2); Basophils % (auto) 0.6 %; Eosinophils # (auto) 0.24 K/uL (0-0.5); Eosinophils % (auto) 4.5 %; Hematocrit (blood only) 38.7 % (42-52); Hemoglobin 12.8 g/dL (14.0-18.0); Immature Granulocytes # (auto) 0.01 K/uL (0.00-0.02); Immature Granulocytes % (auto) 0.2 %; Lymphocytes # (auto) 0.96 K/uL (1.2-3.4); Mean Corpuscular Hemoglobin 31.8 pg (25-34); Mean Corpuscular Hgb Conc 33.1 g/dL (32-36); Mean Platelet Volume 10.4 fL (7.4-10.4); Monocytes % (auto) 11.3 %; Neutrophils # (auto) 3.48 K/uL (1.4-6.5); Neutrophils % (auto) 65.4 %; Platelet Count 110 K/uL (130-400); RDW Coefficient of Variation 14.9 % (11.5-14.5); RDW Standard Deviation 52.5 fL (36.4-46.3); Red Blood Count 4.03 M/uL (4.7-6.1); White Blood Count 5.32 K/uL (4.8-10.8)
[2019-03-08] MEDS ORDERED: LEVOTHYROXINE SODIUM 75 MCG TABLET PO SCH (06:30)
[2019-03-08 06:43] LABS: BUN Creatinine Ratio 27.9 (10-20); Calcium 9.8 mg/dl (8.5-10.1); Creatinine Clr Calc Pharmacy 47.8 ml/min; Est GFR (African American) 55.9; Est GFR (Non-African American) 48.3; Potassium 3.8 mmol/L (3.5-5.1)
[2019-03-08] MEDS: INSULIN ASPART 100 UNITS/ML 3 ML PEN SC SCH ×2 (08:01→11:35)
[2019-03-08] MEDS: METOPROLOL SUCC 50MG EXT REL TAB PO SCH (08:03)
[2019-03-08] MEDS: MAGNESIUM CHLORIDE 64MG DELAYED REL TAB PO SCH (08:04)
[2019-03-08] MEDS: GABAPENTIN 300 MG CAP PO SCH (08:04)
--- NOTE | 2019-03-08 08:47 | Discharge Summary ---
Date of Service March 08, 2019 Admission HPI Per Admitting Provider Patient has had progressive exertional symptoms of dyspnea mild chest discomfort over the past couple of months. He is noted to have an abnormal perfusion study from approximately 1 year ago. Based on his symptoms and suspicion for coronary disease he presented for coronary angiography. Principal Diagnosis q Discharge Exam The right radial access site is without ecchymosis or hematoma. No edema in the extremity. Good perfusion of the right hand with palpable right radial pulse. Discharge Data Allergies Allergy/AdvReac Type Severity Reaction Status Date / Time No Known Allergies Allergy ? 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 He appeared to have a chronic occlusion of the circumflex artery just after the takeoff of a large obtuse marginal branch. He had obstructive disease in the first diagonal branch. He had sequential stenoses in the right coronary artery. Patient did undergo percutaneous intervention to the right coronary artery. There were no immediate complications. The following morning the patient was feeling well. There were no access site complications. He had been ambulatory around his hospital room and hurst without symptoms. Total Time Total Time Spent Total Time Spent (In Minutes): 10 Total Time Includes: Examination of the Patient and Medication Reconciliation Discharge Plan Discharge Items Patient Disposition: Home - Self-Care Reason For Visit: Cardiomyopathy Discharge Diagnosis: Exertional Angina Activity: Per Instructions section Lifting: No more than 5 pounds Bathing: No limitations Exercise/Sports: Gradually increase as tolerated Driving/Machine Use: No limitations Non-emergency contact: Sales Representative Call non-emergency contact if: you have any medication questions Follow-up/Referrals: Bora Najera MD [Primary Care Provider] - Diet: Carb Consistent or DM2 and Heart Healthy Addtl Attending Provider Instructions: No vigorous use of the right hand or wrist for 7 days Pending Studies at Discharge: No Stand-Alone Forms: [facility] [employer], Smoking Cessation Medications and DC Order Prescriptions: New clopidogrel 75 mg Tablet 75 mg PO QAM 90 Days Qty: 90 RF: 0 Continued acetaminophen [Tylenol Extra Strength] 500 mg tablet 1,000 mg PO Q6H PRN (Reason: Pain) RF: 0 pravastatin [Pravachol] 20 mg tablet 20 mg PO PM RF: 0 multivitamin capsule 1 cap PO QAM RF: 0 glipizide 5 mg tablet 5 mg PO BID RF: 0 cholecalciferol (vitamin D3) 1,000 unit capsule 1,000 units PO QAM RF: 0 levothyroxine 75 mcg capsule 75 mcg PO QAM RF: 0 rivaroxaban [Xarelto] 20 mg tablet 20 mg PO PM RF: 0 losartan [Cozaar] 100 mg tablet 100 mg PO PM Qty: 90 RF: 3 allopurinol [Zyloprim] 300 mg tablet 300 mg PO DAILY RF: 0 metoprolol succinate 100 mg tablet extended release 24 hr 100 mg PO BID RF: 0 metolazone 5 mg tablet 5 mg PO DAILY RF: 0 celecoxib 200 mg capsule 200 mg PO PM RF: 0 gabapentin 300 mg capsule 300 mg PO BID RF: 0 furosemide [Lasix] 40 mg Tablet 40 mg PO UD PRN (Reason: Fluid Retention) RF: 0 potassium chloride 20 mEq tablet,ER particles/crystals 20 meq PO PM RF: 0 magnesium chloride 64 mg Tablet,Delayed Release (Dr/Ec) 64 mg PO BID RF: 0 Discharge Orders: Discharge Order (Routine); Ordered 03/08/19 Ordered By: Rocael Sepulveda Admission Data Admit Date/Time: 03/07/19 10:28 Attending Provider: Rocael Sepulveda Admit Provider: Rocael Sepulveda Primary Care Provider: Bora Najera
[2019-03-08] MEDS ORDERED: allopurinoL 300 MG TAB PO SCH (09:00)
[2019-03-08] MEDS ORDERED: CLOPIDOGREL BISULFATE 75 MG TAB PO SCH (09:00)
[2019-03-08] MEDS ORDERED: CHOLECALCIFEROL 1,000 UNITS TAB PO SCH (09:00)
[2019-03-08] MEDS ORDERED: metOLazone 5 MG TABLET PO SCH (09:00)
[2019-03-08] MEDS ORDERED: MULTIVITAMIN TAB PO SCH (09:00)
== END 2019-03-08 12:00 | disposition home or self-care (01) ==
LOC: 2E 07:02 → CC 07:02

== ENCOUNTER 2019-07-10 08:23 | Observation (INO) ==
[2019-07-10] MEDS ORDERED: fentaNYL citrate 100 MCG/2 ML VIAL ONE (09:19)
[2019-07-10] MEDS ORDERED: MIDAZOLAM HCL 5 MG/ML 1 ML VIAL ONE (09:19)
[2019-07-10] MEDS ORDERED: CEFAZOLIN 250 MG/ML 1 GM VIAL ONE (09:19)
--- NOTE | 2019-07-10 09:39 | History & Physical Bridge Note ---
Date of Service July 10, 2019 History & Physical Bridge Note I have examined the patient, reviewed the History & Physical and in the interval since the performance of the History & Physical I have noted the following changes of clinical significance: no changes noted
--- NOTE | 2019-07-10 09:39 | Pre Anesthesia Assessment ---
Date of Service July 10, 2019 Pre Sedation Assessment Vital Signs Temp Pulse Resp BP Pulse Ox 07/10/19 09:01 36.4 C L 71 20 160/88 H 99 Cardiovascular + regular rate Respiratory + respiratory effort normal Pre-Sedation Airway Assessment Smoking Status: Former smoker Hx Sleep Apnea: Yes Hx Difficult Intubation: No Short, Thick Neck: No Thyromental Distance: > or= 3.5 Finger Breadths Oral Cavity: + WNL Mallampati Class: III ASA: ASA3 Procedure Planning Contraindications for Sedation: none Current Medications Reviewed: Yes Notes The planned sedation has been discussed with the patient. Informed Consent was obtained. I have identified the patient, determined the appropriateness of sedation and have assessed the patient immediately prior to the procedure. All medicine(s) and interventions are by my order.
[2019-07-10] MEDS ORDERED: HEPARIN (PORCINE) 1000 UNIT/ML 10 ML (CATH LAB USE ONLY) ONE (09:47)
[2019-07-10] MEDS ORDERED: ACETAMINOPHEN 325 MG TAB PO PRN (10:46)
--- NOTE | 2019-07-10 10:52 | Electrophysiology Report ---
Date of Service July 10, 2019 Electrophysiology Procedure Electrophysiology Procedure Report Procedure performed: Ablation of AV node Staff concrete mixer: Nelson Sepulveda MD Indication: The patient is an 80-year-old gentleman with a history congestive heart failure status post implantation of a biventricular ICD. The patient continues to have symptoms of dyspnea was noted on device interrogation to have suboptimal biventricular pacing believed secondary to conducted atrial f ibrillation. As such, he was felt to be a good candidate for an AV node ablation. Procedure detail: The patient was informed of the risks benefits and alternatives to the intended procedure. He understood which proceed. He was taken to the electrophysiology suite in fasting state. Conscious sedation was administered per protocol the patient was monitored electrocardiographically throughout today's procedure. The right femoral area is prepped and draped in usual sterile fashion. This area was anesthetized using subcutaneous menstruation of a lidocaine solution. Right femoral vein was subsequently access using modified Seldinger technique an 8 [place] venous sheath was placed at the site over guidewire. This sheath was used to facilitate passage of the ablation catheter to the right atrium under fluoroscopic guidance. Radiofrequency lesions were placed in the area of the AV node and conduction was assessed. When there was no evidence conducted atrial fibrillation to the ventricle the catheter and sheath were removed. Hemostasis was achieved at the access site using manual pressure. Patient tolerated procedure well. There were no immediate complications. Equipment used: Eight [place] 3.5 mm irrigated radiofrequency ablation catheter Impression: Successful creation of AV block without evidence of AV conduction at the conclusion of the procedure. [facility] Electrophysiology codes EP Procedure 1: Electrophysiology: 59473 Ablation AV Node w/wo pace PG Moderate Sedation Codes Moderate Sedation Codes Procedure 1: Sedation/Anesthesia: 96306 Mod Sedation by the same physician;Init15 Min Child Age 5 & Up Procedure 2: Sedation/Anesthesia: 50673 Mod Sedation by the same physician; Ea [id number] Minutes
--- NOTE | 2019-07-10 10:52 | Post Anesthesia Assessment ---
Date of Service July 10, 2019 Post Sedation Assessment Vital Signs Temp Pulse Resp BP Pulse Ox 07/10/19 09:01 36.4 C L 71 20 160/88 H 99 Recovery Score Activity: Moves 4 extremities Respiration: Deep Breath/Cough Circulation: +/-20% PreAnes Value Consciousness: Arouseable (by name) Oxygen Saturation: > 92% On Room Air Discharge Sedation Level of Care: Fast Track Phase II Post Sedation Plan On clinical assessment, the patient appears to have tolerated the sedation without complications. Patient is recovering as anticipated. Patient will continue to be monitored by nursing and may be discharged when sedation discharge criteria are met per below protocol. Upon Completions of procedure up to 15 minutes continue every 5 minute vital signs and the P.A.R. score; then discharge to a Phase I or Fast Track to Phase II per the following guidelines: * Discharge Patient to appropriate Phase II area if PAR is 8 or greater or return to pre- procedure baseline. The post - procedure orders will be as directed. * If PAR score is less than 8 or not return to pre-procedure baseline then patient will follow Phase I monitoring till PAR is reached for Phase II. The Phase I may be done in procedure room or may call to secure a Phase I area. * If naloxone or flumazenil are used for reversal, hold in Phase I for continued monitoring from when last reversal dose was given for a minimum of 60 minutes or longer pending the nurse and/or physician discretion of patient condition before discharge to Phase II. Please call the Sedation Physician to re-evaluate and complete post-note for discharge to Phase II area. Do NOT discharge from procedure sedation or Phase 1 until post- sedation evaluation note is complete by procedure /sedation MD Sedation Discharge Instructions to be given to the patient at discharge to home.
[2019-07-10] MEDS: CLOPIDOGREL BISULFATE 75 MG TAB PO SCH (15:22)
[2019-07-10] MEDS ORDERED: RIVAROXABAN 20 MG TAB PO SCH (16:30)
[2019-07-10] MEDS ORDERED: RIVAROXABAN 15 MG TAB PO SCH (16:30)
[2019-07-10] MEDS: glipiZIDE 5 MG TAB PO SCH (16:40)
[2019-07-10] MEDS ORDERED: PRAVASTATIN SOD 20 MG TAB PO SCH (17:00)
[2019-07-10] MEDS: SACUBITRIL-VALSARTAN 24-26 MG TAB PO SCH (20:12)
[2019-07-10] MEDS: GABAPENTIN 300 MG CAP PO SCH (20:12)
[2019-07-10] MEDS: METOPROLOL SUCC 50MG EXT REL TAB PO SCH (20:12)
[2019-07-10] MEDS ORDERED: CeleBREX 200 MG CAP PO SCH (21:00)
[2019-07-10] MEDS ORDERED: POTASSIUM CHLORIDE 20 MEQ TABCR PO SCH (21:00)
[2019-07-11] MEDS ORDERED: LEVOTHYROXINE SODIUM 75 MCG TABLET PO SCH (06:30)
[2019-07-11 07:33] LABS: Creatinine Clr Calc Pharmacy 51.5 ml/min; Est GFR (African American) 64.1; Est GFR (Non-African American) 55.3
[2019-07-11] MEDS: glipiZIDE 5 MG TAB PO SCH (08:14)
[2019-07-11] MEDS: METOPROLOL SUCC 50MG EXT REL TAB PO SCH (08:14)
[2019-07-11] MEDS: GABAPENTIN 300 MG CAP PO SCH (08:14)
[2019-07-11] MEDS: SACUBITRIL-VALSARTAN 24-26 MG TAB PO SCH (08:14)
[2019-07-11] MEDS ORDERED: ISOSORBIDE MONO EXTENDED REL 30 MG TABCR PO SCH (09:00)
[2019-07-11] MEDS ORDERED: allopurinoL 300 MG TAB PO SCH (09:00)
[2019-07-11] MEDS ORDERED: metOLazone 5 MG TABLET PO SCH (09:00)
--- NOTE | 2019-07-11 09:30 | Discharge Summary ---
Date of Service July 11, 2019 Admission HPI Per Admitting Provider Patient with history of atrial fibrillation and prior implantation of biventricular ICD. Continues to have symptoms of dyspnea with activity and suboptimal pacing percentage. Presented for AV node ablation. Principal Diagnosis q Discharge Exam The right groin access site is without hematoma. No significant ecchymosis or evidence of bleeding. Discharge Data Allergies Allergy/AdvReac Type Severity Reaction Status Date / Time No Known Drug Allergies Allergy Verified 07/01/19 11:53 Procedures Performed Operation Date: 07/10/19 09:30 Actual Procedures p AV Node Ablation - Rocael Sepulveda MD s Interrogation of ICD - Rocael Sepulveda MD Ordered Studies 07/10/19 06:45 EP Lab Images for PACS ONCE Hospital Course (1) Atrial fibrillation: On the day of admission the patient underwent AV node ablation. He was kept overnight for observation. The following morning there is no evidence of bleeding or hematoma at the right groin access site. He was ambulatory without new symptoms. No complication. Total Time Total Time Spent Total Time Spent (In Minutes): 10 Total Time Includes: Examination of the Patient and Medication Reconciliation Discharge Plan Discharge Items Patient Disposition: Home - Self-Care Reason For Visit: Atrial Fibrillation Discharge Diagnosis: atrial fibrillation Activity: Per Instructions section Activity Comment: No lifting >10# for 5 days Lifting: No more than 10 pounds Bathing: No limitations Driving/Machine Use: Resume 1 day after discharge Non-emergency contact: Optical Fabrication Technician Call non-emergency contact if: you have any medication questions and your symptoms worsen Follow-up/Referrals: Bora Najera MD [Primary Care Provider] - Diet: Carb Consistent or DM2 and Heart Healthy Addtl Attending Provider Instructions: none Pending Studies at Discharge: No Stand-Alone Forms: [employer], Smoking Cessation Medications and DC Order Prescriptions: New Xarelto 15 mg Tablet 15 mg PO QDD Qty: 30 RF: 3 Continued pravastatin [Pravachol] 20 mg tablet 20 mg PO PM RF: 0 multivitamin capsule 1 cap PO QAM RF: 0 glipizide 5 mg tablet 5 mg PO BID RF: 0 cholecalciferol (vitamin D3) 1,000 unit capsule 1,000 units PO QAM RF: 0 levothyroxine 75 mcg capsule 75 mcg PO QAM RF: 0 metoprolol succinate 100 mg tablet extended release 24 hr 100 mg PO BID RF: 0 celecoxib 200 mg capsule 200 mg PO PM Qty: 90 RF: 1 clopidogrel 75 mg tablet 75 mg PO QAM 90 Days Qty: 90 RF: 3 allopurinol [Zyloprim] 300 mg tablet 300 mg PO DAILY Qty: 90 RF: 3 metolazone 5 mg tablet 5 mg PO DAILY Qty: 90 RF: 3 isosorbide mononitrate 30 mg tablet extended release 24 hr 30 mg PO DAILY Qty: 90 RF: 3 gabapentin 300 mg capsule 300 mg PO BID Qty: 60 RF: 1 sacubitril-valsartan 1 tab PO BID RF: 0 furosemide [Lasix] 40 mg Tablet 40 mg PO UD PRN (Reason: Fluid Retention) RF: 0 potassium chloride 20 mEq tablet,ER particles/crystals 20 meq PO PM RF: 0 magnesium chloride 64 mg Tablet,Delayed Release (Dr/Ec) 64 mg PO BID RF: 0 Discontinued rivaroxaban [Xarelto] 20 mg tablet 20 mg PO PM RF: 0 Discharge Orders: Discharge Order (Routine); Ordered 07/11/19 Ordered By: Rocael Sepulveda Admission Data Admit Date/Time: 07/10/19 11:39 Attending Provider: Rocael Sepulveda Admit Provider: Rocael Sepulveda Primary Care Provider: Bora Najera Coding Level of Care Code 01010 OBS Care - Discharge Diagnoses Atrial fibrillation I48.91
[2019-07-11] MEDS: CLOPIDOGREL BISULFATE 75 MG TAB PO SCH (10:23)
== END 2019-07-11 12:09 | disposition home or self-care (01) ==
LOC: EP 08:23 → 2S 08:23

== ENCOUNTER 2019-07-20 14:21 | Inpatient (IN) ==
[2019-07-20] MEDS ORDERED: ALBUT/IPRATROP 3MG/0.5MG NEB 3 ML VIAL INH STA ×2 (15:11→15:19)
[2019-07-20] MEDS ORDERED: BENZONATATE 100 MG CAPSULE PO ONE (15:19)
[2019-07-20] MEDS ORDERED: methylPREDNISolone 60 MG in SYRINGE 1 ML IV STA (15:19)
--- NOTE | 2019-07-20 15:25 | Emergency Department Note ---
ED Provider Note CHIEF COMPLAINT: Cough and shortness of breath HISTORY OF PRESENT ILLNESS: The patient is a 88 year old male who presents to the ER because of cough and shortness of breath. The patient also notes the following associated symptoms: Some chest pain with coughing and some weakness. The symptoms started last evening ago and are much worse today and described as moderate to severe. The patient has tried the following for relief : Nothing The patient is an 88-year-old male who presents the ER with a cough and shortness of breath. He began feeling a tickle in his chest and began coughing last night. Today, the cough was worse and has been almost unrelenting. He has mild pain in the chest to cough. He feels short of breath. The patient did summon the EMS crew, his saturation when they arrived was around 88%, he does not have diagnosed lung disease and does not wear oxygen typically. The patient denies any fever, there has been no vomiting or diarrhea. The patient denies any recent travel or sick contacts. Patient did have a flu shot this year. Of note, the patient did have an ablation performed in early July, about 10 days ago. This was done for his A. fib. He is still taking Xarelto. REVIEW OF SYSTEMS: See HPI for pertinent positives and negatives. A total of ten systems were reviewed and were otherwise negative. PMHx/PSHx: See Below SOCIAL HISTORY: See Below. PHYSICAL EXAM: GENERAL: Patient is in no acute distress. HEENT: No acute trauma, normocephalic atraumatic, mucous membranes moist, no nasal congestion, no scleral icterus. NECK: No stridor, no adenopathy, no meningismus, trachea is midline. LUNGS:Wheezing and rhonchi primarily on the left, increased respiratory rate, no real respiratory distress, equal breath sounds, dry cough noted. HEART: Without murmurs gallops or rubs, regular rate and rhythm. ABDOMEN: Soft, nontender, bowel sounds positive, no hernias, no peritonitis. EXTREMITIES: No cyanosis, ,mild pedal edema, full range of motion of all the joints without pain or difficulty, no signs for acute trauma. NEUROLOGIC: Oriented x 3, no acute motor or sensory deficits, no focal weakness. SKIN: No rash, no jaundice, no diaphoresis. DIFFERENTIAL DIAGNOSIS: Reactive airway disease, pneumonia, pneumothorax, COPD, CHF, infections, cardiac ischemia, pulmonary embolism, musculoskeletal, gastrointestinal, as well as other pathologies. EMERGENCY DEPARTMENT COURSE: The patient was seen and examined, imaging and laboratory testing was ordered. The patient received a DuoNeb, IV Solu-Medrol. I spoke to the patient about his findings, he does seem improved. I spoke to case management, the on-call hospitalist was consulted. MEDICAL DECISION MAKING: There is no leukocytosis. The patient is not anemic. Platelet count was slightly low. No concerning coagulopathy. Magnesium was low at 1.6, no kidney failure. No liver enzyme elevation. EKG shows a ventricular pacemaker, no acute ischemia. Cardiac enzyme testing x1 is not consistent with acute cardiac injury. Influenza testing returned negative. Chest film shows a potential small pneumonia I believe on the left versus some atelectasis, some diffuse parenchymal congestion was noted. BNP was not elevated making CHF less likely. On exam, the patient was wheezing with rhonchi especially on the left. He did have a persistent cough. He seemed short of breath with coughing. He was hypoxic when first seen by the paramedics. Patient received a DuoNeb, he was given IV Solu-Medrol, oral Tessalon. He received IV Lasix. He was given IV ceftriaxone and IV magnesium. The patient does feel improved with treatment. He does seem to be more comfortable. He is requiring some nasal cannula oxygen supplementation. I do think the patient requires a hospital stay. He appears to have pneumonia with maybe a touch of heart failure. This has led to his hypoxia, cough and dyspnea. I spoke to the patient, I talked with case management. The on-call hospitalist was consulted. EKG: The patient has a ventricular pacemaker present. The rate is 76. QTc is 499. There are no PVCs, no ST elevation to suggest acute ischemia. Continuous Cardiac Monitoring: An order was placed for continuous cardiac monitoring. The monitor shows a rate of 79 with a ventricular pacemaker. Critical Care Note: I have personally spent greater than 33 minutes of critical care time in the direct management of this patient. This includes bedside care, interpretation of diagnostic studies, and testing, discussion with consultants, patient, and family members, and other required patient management activities. This 33 minutes is in excess of all separately billable procedures. Impression & Plan Hypoxia, Pneumonia, SOB (shortness of breath), Hypomagnesemia, CHF (congestive heart failure) Past Med/Surg History Medical History Bradycardia (Resolved) Gross hematuria History of shingles (Resolved) Prostate cancer (Chronic) Surgical History History of eye surgery (Resolved) History of lumbosacral spine surgery (Resolved) S/P total knee arthroplasty (Resolved) Bilateral Family History Other Family history non-contributory Social History Preferred Language: South Korean Communication Ability: Effective Property Valuer Required: No Beliefs That Will Affect Care: None marital status: Current Living Situation: Alone Feels Safe at Home: Yes Safety Concerns: Feels Safe At This Time Smoking Status: Never smoker Tobacco Type: cigarettes ; Second Hand Exposure: No ; Hx Alcohol Use: No Hx Substance Use: No Results & Data Vital Signs Vital Signs - 24 hr 07/20/19 14:32 07/20/19 14:33 07/20/19 14:35 Temperature Temperature Source Pulse Rate 83 86 79 Pulse Rate [Finger] Pulse Rate from SpO2 Sensor 83 80 Respiratory Rate 23 23 22 Respiratory Effort / Characteristics Respiratory Depth Blood Pressure 167/94 H 167/94 H Blood Pressure Mean 100 100 Blood Pressure Position Pulse Oximetry 93 93 Oxygen Delivery Method Oxygen Flow Rate Sepsis Recent Fever Within 48 Hours Sepsis New/Unexplained Change in Mental Status Sepsis Action Taken by Nursing Oxygen Flow Rate - Titration Pulse Oximetry Post Tiitration 07/20/19 14:37 07/20/19 15:00 07/20/19 15:23 Temperature 36.8 C Temperature Source Oral Pulse Rate 85 76 Pulse Rate [Finger] Pulse Rate from SpO2 Sensor 74 Respiratory Rate 22 20 Respiratory Effort / Characteristics Non-Labored Respiratory Depth Normal Blood Pressure 152/99 H 147/88 H Blood Pressure Mean 116 103 Blood Pressure Position Lying Pulse Oximetry 98 98 90 Oxygen Delivery Method Nasal Cannula Room Air Nasal Cannula Oxygen Flow Rate 2 Sepsis Recent Fever Within 48 Hours No Sepsis New/Unexplained Change in Mental Status No Sepsis Action Taken by Nursing No Action Required Oxygen Flow Rate - Titration 2 Pulse Oximetry Post Tiitration 98 07/20/19 15:27 07/20/19 15:30 07/20/19 15:35 Temperature Temperature Source Pulse Rate 77 Pulse Rate [Finger] 81 Pulse Rate from SpO2 Sensor 76 Respiratory Rate 18 21 Respiratory Effort / Characteristics Respiratory Depth Blood Pressure 153/95 H Blood Pressure Mean 113 Blood Pressure Position Pulse Oximetry 100 100 100 Oxygen Delivery Method Nasal Cannula Room Air Oxygen Flow Rate 2 2 Sepsis Recent Fever Within 48 Hours Sepsis New/Unexplained Change in Mental Status Sepsis Action Taken by Nursing Oxygen Flow Rate - Titration Pulse Oximetry Post Tiitration 97 07/20/19 16:00 07/20/19 16:30 Temperature Temperature Source Pulse Rate 75 75 Pulse Rate [Finger] Pulse Rate from SpO2 Sensor 75 Respiratory Rate 18 25 H Respiratory Effort / Characteristics Respiratory Depth Blood Pressure 116/74 164/95 H Blood Pressure Mean 84 118 Blood Pressure Position Pulse Oximetry 88 L Oxygen Delivery Method Oxygen Flow Rate Sepsis Recent Fever Within 48 Hours Sepsis New/Unexplained Change in Mental Status Sepsis Action Taken by Nursing Oxygen Flow Rate - Titration Pulse Oximetry Post Tiitration Home Medications Current Medication List: was personally reviewed by me Laboratory Data Attestation: I reviewed the patient's lab results. Result diagrams: 07/20/19 15:20 07/20/19 15:20 Lab Results 07/20/19 07/20/19 07/20/19 Range/Units 15:20 15:20 15:20 WBC 4.44 L (4.8-10.8) K/uL RBC 4.36 L (4.7-6.1) M/uL Hgb 14.1 (14.0-18.0) g/dL Hct 42.4 (42-52) % MCV 97.2 (80-100) fL MCH 32.3 (25-34) pg MCHC 33.3 (32-36) g/dL RDW Std Deviation 52.9 H (36.4-46.3) fL RDW Coeff of Alexandro 15.0 H (11.5-14.5) % Plt Count 124 L (130-400) K/uL MPV 10.4 (7.4-10.4) fL Immature Gran % (Auto) 0.5 % Neut % (Auto) 59.6 % Lymph % (Auto) 19.8 % Ocean % (Auto) 13.1 % Eos % (Auto) 6.5 % Baso % (Auto) 0.5 % Immature Gran # (Auto) 0.02 (0.00-0.02) K/uL Neut # (Auto) 2.65 (1.4-6.5) K/uL Lymph # (Auto) 0.88 L (1.2-3.4) K/uL Ocean # (Auto) 0.58 (0.11-0.59) K/uL Eos # (Auto) 0.29 (0-0.5) K/uL Baso # (Auto) 0.02 (0-0.2) K/uL PT 12.4 H (9.0-12.0) Seconds INR 1.2 H (0.9-1.1) APTT 31.0 (21.0-31.0) Seconds PTT Ratio 1.1 Sodium 139 (136-145) mmol/L Potassium 4.6 (3.5-5.1) mmol/L Chloride 103 (98-107) mmol/L Carbon Dioxide 32 (21-32) mmol/L Anion Gap 3.0 (3-11) BUN 28 H (7-18) mg/dl Creatinine 1.28 (0.6-1.4) mg/dl Est Cr Clr Drug Dosing 49.6 ml/min Est GFR ( Amer) 57.5 Est GFR (Non-Af Amer) 49.6 BUN/Creatinine Ratio 21.8 H (10-20) Glucose 168 H (70-99) mg/dl Calcium 10.2 H (8.5-10.1) mg/dl Magnesium 1.6 L (1.8-2.4) mg/dl Total Bilirubin 0.5 (0.2-1) mg/dl AST 23 (15-37) U/L ALT 31 (12-78) U/L Alkaline Phosphatase 71 (45-117) U/L Troponin I < 0.015 (0-0.045) ng/ml NT-Pro-B Natriuret Pep 1230 (0-1800) pg/ml Total Protein 7.4 (6.4-8.2) gm/dl Albumin 3.5 (3.4-5.0) gm/dl Globulin 3.9 (2.5-4.0) gm/dl Albumin/Globulin Ratio 0.9 (0.9-2) Influenza Type A (PCR) (Neg) Influenza Type B (PCR) (Neg) 03/15/20 Range/Units 16:00 WBC (4.8-10.8) K/uL RBC (4.7-6.1) M/uL Hgb (14.0-18.0) g/dL Hct (42-52) % MCV (80-100) fL MCH (25-34) pg MCHC (32-36) g/dL RDW Std Deviation (36.4-46.3) fL RDW Coeff of Alexandro (11.5-14.5) % Plt Count (130-400) K/uL MPV (7.4-10.4) fL Immature Gran % (Auto) % Neut % (Auto) % Lymph % (Auto) % Ocean % (Auto) % Eos % (Auto) % Baso % (Auto) % Immature Gran # (Auto) (0.00-0.02) K/uL Neut # (Auto) (1.4-6.5) K/uL Lymph # (Auto) (1.2-3.4) K/uL Ocean # (Auto) (0.11-0.59) K/uL Eos # (Auto) (0-0.5) K/uL Baso # (Auto) (0-0.2) K/uL PT (9.0-12.0) Seconds INR (0.9-1.1) APTT (21.0-31.0) Seconds PTT Ratio Sodium (136-145) mmol/L Potassium (3.5-5.1) mmol/L Chloride (98-107) mmol/L Carbon Dioxide (21-32) mmol/L Anion Gap (3-11) BUN (7-18) mg/dl Creatinine (0.6-1.4) mg/dl Est Cr Clr Drug Dosing ml/min Est GFR ( Amer) Est GFR (Non-Af Amer) BUN/Creatinine Ratio (10-20) Glucose (70-99) mg/dl Calcium (8.5-10.1) mg/dl Magnesium (1.8-2.4) mg/dl Total Bilirubin (0.2-1) mg/dl AST (15-37) U/L ALT (12-78) U/L Alkaline Phosphatase (45-117) U/L Troponin I (0-0.045) ng/ml NT-Pro-B Natriuret Pep (0-1800) pg/ml Total Protein (6.4-8.2) gm/dl Albumin (3.4-5.0) gm/dl Globulin (2.5-4.0) gm/dl Albumin/Globulin Ratio (0.9-2) Influenza Type A (PCR) Neg for Influ A (Neg) Influenza Type B (PCR) Neg for Influ B (Neg) Administered Medications Discontinued Medications Albuterol (Duoneb) 3 ml INH NOW STA Stop: 07/20/19 15:12 Last Admin: 07/20/19 15:25 Dose: Not Given Documented by: [id number] Albuterol (Duoneb) 3 ml INH NOW STA Stop: 07/20/19 15:20 Last Admin: 07/20/19 15:26 Dose: 3 ml Documented by: [id number] Benzonatate (Tessalon Perle) 100 mg PO NOW ONE Stop: 07/20/19 15:20 Last Admin: 07/20/19 15:31 Dose: 100 mg Documented by: [id number] Furosemide (Lasix) 40 mg IV NOW STA Stop: 07/20/19 15:42 Last Admin: 07/20/19 16:25 Dose: 40 mg Documented by: [id number] Methylprednisolone 60 mg/ (Syringe) 1.96 mls @ 1.5 mls/min IV NOW STA Stop: 07/20/19 15:20 Last Admin: 07/20/19 15:31 Dose: 1.5 mls/min Documented by: [id number] Magnesium Sulfate/Dextrose (Magnesium Sulfate / D5w) 1 gm in 100 mls @ 100 mls/hr IV ONE ONE Stop: 07/20/19 16:53 Last Infusion: 07/20/19 18:00 Dose: 0 mls/hr Documented by: [id number] Admin: 07/20/19 16:25 Dose: 100 mls/hr Documented by: [id number] Ceftriaxone Sodium (Rocephin) 2,000 mg in 70 mls @ 140 mls/hr IV NOW STA Stop: 07/20/19 16:23 Last Infusion: 07/20/19 18:00 Dose: 0 mls/hr Documented by: [id number] Admin: 07/20/19 16:25 Dose: 140 mls/hr Documented by: [id number] Methylprednisolone (Solumedrol) Confirm Administered Dose 125 mg .ROUTE .STK-MED ONE Stop: 07/20/19 15:27 Last Admin: 07/20/19 15:31 Dose: Not Given Documented by: [id number] Imaging Data Radiologist's Impression: XR chest 1V portable CLINICAL HISTORY: SOB COMPARISON STUDY: 05/10/2018 FINDINGS: The heart is enlarged. There is mild prominence of central vessels consistent with mild pulmonary vascular congestion. There is no overt edema. T here are basilar airspace opacity statistically atelectatic although an infectious/inflammatory processes could appear similar. There are no significant pleural effusions. There is a left subclavian central venous pacer/defibrillator present. IMPRESSION: 1. Cardiomegaly and radiographic evidence of mild pulmonary vascular congestion/fluid overload 2. Nonspecific basilar opacity statistically atelectatic Blood Pressure Blood Pressure Findings: Elevated blood pressure Blood Pressure Disposition: further management by hospitalist Discharge Plan Visit Data *Final* Discharge Date/Time: 07/20/19 18:52 Chief Complaint: Cough Stated Complaint: sob ED Provider: Ham Keenan Discharge Problem: Hypoxia, Pneumonia, SOB (shortness of breath), Hypomagnesemia, CHF (congestive heart failure) Patient Disposition: Admitted As Inpatient Condition: Good Discharge Instructions Interventions: ED Discharge Assessment Last Done: 07/20/19 18:52 Discharge Problem: Pneumonia Qualifiers: Pneumonia type: due to unspecified organism Laterality: left Lung location: lower lobe of lung Qualified Code(s): J18.9 - Pneumonia, unspecified organism CHF (congestive heart failure) Qualifiers: Heart failure type: unspecified Heart failure chronicity: acute on chronic Q ualified Code(s): I50.9 - Heart failure, unspecified
[2019-07-20] MEDS ORDERED: methylPREDNISolone 125 MG/2 ML VIAL ONE (15:26)
[2019-07-20 15:27] LABS: Basophils # (auto) 0.02 K/uL (0-0.2); Basophils % (auto) 0.5 %; Eosinophils # (auto) 0.29 K/uL (0-0.5); Eosinophils % (auto) 6.5 %; Hematocrit (blood only) 42.4 % (42-52); Hemoglobin 14.1 g/dL (14.0-18.0); Immature Granulocytes # (auto) 0.02 K/uL (0.00-0.02); Immature Granulocytes % (auto) 0.5 %; Lymphocytes # (auto) 0.88 K/uL (1.2-3.4); Lymphocytes % (auto) 19.8 %; Mean Corpuscular Hemoglobin 32.3 pg (25-34); Mean Corpuscular Hgb Conc 33.3 g/dL (32-36); Mean Corpuscular Volume 97.2 fL (80-100); Mean Platelet Volume 10.4 fL (7.4-10.4); Monocytes # (auto) 0.58 K/uL (0.11-0.59); Monocytes % (auto) 13.1 %; Neutrophils # (auto) 2.65 K/uL (1.4-6.5); Neutrophils % (auto) 59.6 %; Platelet Count 124 K/uL (130-400); RDW Standard Deviation 52.9 fL (36.4-46.3); Red Blood Count 4.36 M/uL (4.7-6.1); White Blood Count 4.44 K/uL (4.8-10.8)
--- NOTE | 2019-07-20 15:33 | XRay Report ---
XR chest 1V portable CLINICAL HISTORY: SOB COMPARISON STUDY: 05/10/2018 FINDINGS: The heart is enlarged. There is mild prominence of central vessels consistent with mild pul monary vascular congestion. There is no overt edema. There are basilar airspace opacity statistically atelectatic although an infectious/inflammatory processes could appear similar[. There are no signif icant pleural effusions. There is a left subclavian central venous pacer/defibrillator present. IMPRESSION: 1. Cardiomegaly and radiographic evidence of mild pulmonary vascular congestion/fluid overload 2. Nonspecific basilar opacity statistically atelectatic ACT 112: Negative or not required by law. Electronically signed by: Dayton Goyal M.D. 07/20/2019 3:32 PM
[2019-07-20 15:38] LABS: INR 1.2 (0.9-1.1); Partial Thromboplastin Ratio 1.1; Prothrombin Time 12.4 Seconds (9.0-12.0)
[2019-07-20] MEDS ORDERED: FUROSEMIDE 40 MG/4 ML VIAL IV STA ×2 (15:41→19:16)
[2019-07-20 15:46] LABS: Alanine Aminotransferase 31 U/L (12-78); Albumin Level 3.5 gm/dl (3.4-5.0); Aspartate Aminotransferase 23 U/L (15-37); BUN Creatinine Ratio 21.8 (10-20); Blood Urea Nitrogen 28 mg/dl (7-18); Calcium 10.2 mg/dl (8.5-10.1); Carbon Dioxide 32 mmol/L (21-32); Chloride 103 mmol/L (98-107); Creatinine Clr Calc Pharmacy 49.6 ml/min; Est GFR (African American) 57.5; Est GFR (Non-African American) 49.6; Glucose 168 mg/dl (70-99); Magnesium 1.6 mg/dl (1.8-2.4); Potassium 4.6 mmol/L (3.5-5.1); Sodium 139 mmol/L (136-145)
[2019-07-20 15:51] LABS: Albumin Globulin Ratio 0.9 (0.9-2); Alkaline Phosphatase 71 U/L (45-117); Bilirubin,Total 0.5 mg/dl (0.2-1); Globulin 3.9 gm/dl (2.5-4.0); NT Pro B Type Natriuretic Pept 1230 pg/ml (0-1800); Total Protein 7.4 gm/dl (6.4-8.2); Troponin I < 0.015 ng/ml (0-0.045)
[2019-07-20] MEDS ORDERED: MAGNESIUM SULFATE / D5W 1 GM/100 ML BAG IV ONE (15:54)
[2019-07-20] MEDS ORDERED: cefTRIAXone SODIUM 2,000 MG/70 ML BAG IV STA (15:54)
--- NOTE | 2019-07-20 16:46 | History & Physical Report ---
Date of Service July 20, 2019 Assessment & Plan (1) Pneumonia: I did review the chest x-ray personally and concerned about left lower lobe infiltrate. We will admit the patient for possible pneumonia. Tested negative for influenza. Consider healthcare associated pneumonia considering the patient's recent hospitalization. Patient was given Zithromax and Rocephin emergency room, will change to Zosyn and vancomycin until blood and sputum cultures can be obtained. Patient did have some bronchospasm as well as was given Solu-Medrol in the emergency room. We can restart this at 40 mg every 12 hours with rapid taper along with nebulizers. (2) Systolic CHF, chronic: Appearance of chest x-ray along with presence of JVD, concern for secondary acute on chronic systolic CHF. Last echo from 05/25/2019 shows an EF of 25-30% with global hypokinesis of left ventricle. Patient is on furosemide and metolazone as an outpatient, was given Lasix 40 mg IV x1 in the emergency room. Continue this at 40 mg daily along with his oral metolazone. We will ask cardiology to evaluate for further treatment. Consider repeating 2D echo if no outpatient results more immediately available. (3) Atrial fibrillation: Status post ablation on 07/10/2019. Patient seems to doing well from this respect. Continue beta-blockers as ordered. Patient is appropriately anticoagulated with Xarelto we can continue this as ordered. (4) DM II (diabetes mellitus, type II), controlled: Patient is on glipizide which we will continue. Add ADA diet along with sliding scale. (5) Coronary artery disease: This appears to be stable. Continue Plavix as previously ordered along with pravastatin. History of Present Illness Primary Care Provider: Bora Najera MD This is an 88-year-old male with past medical history of atrial fibrillation with AV ablation earlier this month, status BiV pacemaker, chronic systolic CHF, obstructive sleep apnea that presents today complaining of acute shortness of breath. Patient is pleasantly good historian, accompanied by his son. Patient was briefly admitted here from in a cardiology service for an AV ablation for his chronic atrial fibrillation. This procedure was performed without complications. Patient tells me that he went home afterwards and did not have any issues. Starting last night, he had a mild cough that was dry without production. Denies any fevers or chills. Unfortunately, the cough progressed and now is quite bad. It is hacking and associated with shortness of breath. He denies any chest pain or palpitations with this. He denies any abdominal issues, nausea, vomiting, diarrhea, or constipation. The patient's symptoms became bad enough that he presented to the emergency room for further evaluation. On presentation, the patient was found to have an O2 sat of 88%. He started on 2 L nasal cannula which he has responded to well. He is afebrile. He is in paced rhythm in the 70s on monitor. He does not appear to be in any cardiopulmonary distress. Allergies Allergy/AdvReac Type Severity Reaction Status Date / Time No Known Drug Allergies Allergy Unknown Verified 07/20/19 16:01 Home Medications Home Medications Medication Instructions Recorded Confirmed Type cholecalciferol (vitamin D3) 25 1,000 units PO QAM 01/16/18 07/20/19 History mcg (1,000 unit) capsule glipizide 5 mg tablet 5 mg PO BID 01/16/18 07/20/19 History levothyroxine 75 mcg capsule 75 mcg PO QAM 01/16/18 07/20/19 History multivitamin 1 cap PO QAM 01/16/18 07/20/19 History furosemide [Lasix] 40 mg PO Q OTHER DAY PRN 05/08/18 07/20/19 History magnesium chloride 64 mg PO BID 05/08/18 07/20/19 History celecoxib 200 mg capsule 200 mg PO PM #90 cap 03/10/19 07/20/19 Rx clopidogrel 75 mg tablet 75 mg PO QAM 90 Days #90 tab 05/14/19 07/20/19 Rx allopurinol 300 mg tablet 300 mg PO DAILY #90 tab 05/22/19 07/20/19 Rx metolazone 5 mg tablet 5 mg PO DAILY #90 tab 05/22/19 07/20/19 Rx isosorbide mononitrate 30 mg 30 mg PO DAILY #90 tab 06/05/19 07/20/19 Rx tablet,extended release 24 hr gabapentin 300 mg capsule 300 mg PO BID #60 cap 06/23/19 07/20/19 Rx sacubitril-valsartan 1 tab PO BID 07/01/19 07/20/19 History rivaroxaban [Xarelto] 15 mg PO QDD #30 tab 07/11/19 07/20/19 Rx metoprolol succinate 100 mg 100 mg PO BID #180 tab 07/17/19 07/20/19 Rx tablet,extended release 24 hr potassium chloride 20 mEq 20 meq PO PM #90 tab 07/17/19 07/20/19 Rx tablet,extended release(part/cryst) pravastatin 20 mg tablet 20 mg PO PM #90 tab 07/17/19 07/20/19 Rx Past Med/Surg History Social History Preferred Language: Upper Sorbian Communication Ability: Effective 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 Beliefs That Will Affect Care: None marital status: Current Living Situation: Alone Feels Safe at Home: Yes Safety Concerns: Feels Safe At This Time Smoking Status: Never smoker Tobacco Type: cigarettes ; Second Hand Exposure: No ; Hx Alcohol Use: No Hx Substance Use: No Review of Systems Constitutional: no fever, no chills, no weakness, no weight loss and no weight gain Eyes: as per Subjective / HPI Respiratory: + cough; no chest congestion, no dyspnea, no dyspnea on exertion and no sputum production Cardiovascular: no chest pain, no orthopnea, no palpitations, no lightheadedness and no edema Gastrointestinal: no abdominal pain, no nausea, no vomiting, no constipation and no diarrhea/loose stools Genitourinary: no dysuria, no difficulty urinating, no urinary frequency, no urinary hesitancy and no urinary incontinence Musculoskeletal: no back pain, no neck pain, no joint pain, no stiffness and no myalgia Integumentary: no rash Neurologic: no gait abnormality, no unsteadiness, no falls and no generalized weakness Physical Exam Constitutional: cooperative; no acute distress Neck: trachea midline, no thyromegaly Respiratory: normal respiratory effort Auscultation: + diminished lung sounds, + rales (Auscultated best at the left base) and + wheezes (Slight expiratory wheeze) Cardiovascular: Rate/Rhythm: regular rate and regular rhythm Heart Sounds: normal S1 and normal S2 Vessels: + JVD; no carotid bruit Gastrointestinal (Abdomen): Inspection/Auscultation: abdomen normal to inspection Percussion/Palpation: abdomen soft; abdomen nontender, no guarding, abdomen not rigid and no hepatosplenomegaly Skin: no rashes, warm and dry Results & Data Vital Signs (Past 12 Hours) Vital Signs Temp Pulse Pulse Resp BP Pulse Ox 07/20/19 15:35 100 07/20/19 15:27 81 18 100 07/20/19 15:23 90 07/20/19 15:00 76 20 147/88 H 98 07/20/19 14:37 36.8 C 85 22 152/99 H 98 07/20/19 14:35 79 22 93 07/20/19 14:33 86 23 167/94 H 07/20/19 14:32 83 23 167/94 H 93 Laboratory Results WBC is a 4.4, hemoglobin of 14.1, hematocrit of 42.4, platelets 124. INR is 1.2. Sodium of 139, potassium 4.6 chloride 103, carbon oxide 32, BUN of 28 with a creatinine of 1.28. Glucose 168. Calcium 10.2. Magnesium 1.6. LFTs are normal. Troponin is nondetectable. Influenza swab is negative. Diagnostic Findings XR chest 1V portable CLINICAL HISTORY: SOB COMPARISON STUDY: 05/10/2018 FINDINGS: The heart is enlarged. There is mild prominence of central vessels consistent with mild pulmonary vascular congestion. There is no overt edema. There are basilar airspace opacity statistically atelectatic although an infectious/inflammatory processes could appear similar[. There are no significant pleural effusions. There is a left subclavian central venous pacer/defibrillator present. IMPRESSION: 1. Cardiomegaly and radiographic evidence of mild pulmonary vascular congestion/fluid overload 2. Nonspecific basilar opacity statistically atelectatic PG Care Time/CCT Total # of Minutes Spent Total Time Spent with Patient: Total time spent is greater than 50% in coordinat ion of care (as documented) at patient's floor/unit and/or counseling patient: Coding Level of Care Code 54870 Initial Inpt Care Lvl 3 Diagnoses Pneumonia J18.9 Systolic CHF, chronic I50.22 Atrial fibrillation I48.91 DM II (diabetes mellitus, type II), controlled E11.9 Coronary artery disease I25.10
[2019-07-20 16:53] LABS: Influenza A virus by PCR Neg for Influ A (Neg); Influenza B virus by PCR Neg for Influ B (Neg)
[2019-07-20] MEDS ORDERED: PIPERACILL/TAZOBAC CONSULT ACTIVE PRN (19:16)
[2019-07-20] MEDS ORDERED: DEXTROSE 50% 50 ML SYRINGE IV PRN (19:16)
[2019-07-20] MEDS ORDERED: ACETAMINOPHEN 325 MG TAB PO PRN (19:16)
[2019-07-20] MEDS ORDERED: ALBUT/IPRATROP 3MG/0.5MG NEB 3 ML VIAL NEB PRN (19:16)
[2019-07-20] MEDS ORDERED: GLUCAGON FOR INJ 1 MG VIAL SQ PRN (19:16)
[2019-07-20] MEDS ORDERED: VANCOMYCIN CONSULT ACTIVE PRN (19:16)
[2019-07-20] MEDS ORDERED: ONDANSETRON INJ 2 MG/ML 2 ML VIAL IV PRN (19:16)
[2019-07-20] MEDS ORDERED: GLUCOSE 10 TABS/TUBE PO PRN (19:16)
[2019-07-20] MEDS ORDERED: CARBOHYDRATES FOR HYPOGLYCEMIA PO PRN (19:16)
[2019-07-20] MEDS ORDERED: VANCOMYCIN HCL 1,000 MG/270 ML BAG IV SCH (19:16)
[2019-07-20] MEDS ORDERED: GLUCOSE 40% GEL 15 GM TUBE PO PRN (19:16)
[2019-07-20] MEDS ORDERED: PHARMACY GLYCEMIC MGMT CONSULT PRN (19:28)
[2019-07-20] MEDS ORDERED: PIPERACILLIN/TAZOBACTAM 3.375 GM in DEXTROSE 5% 100 ML/100 ML BAG IV ONE (20:00)
[2019-07-20] MEDS ORDERED: FUROSEMIDE 40 MG in SYRINGE 0 ML IV ONE (20:00)
--- NOTE | 2019-07-20 20:06 | Pharmacy Report ---
Pharmacy Glycemic Short Note 2 - Date of Service July 20, 2019 - Glycemic Short BSG Results (Last 24 hours): 07/20/19 15:20 Glucose 168 H OUTPATIENT ANTIDIABETIC REGIMEN: * Glipizide 5 mg BID * A1c of 7.3% on 03/21/19 - updated A1c pending ASSESSMENT: * Senait is a 88 yo T2DM admitted with pneumonia * Anticipate hyperglycemia secondary to administration of high dose IV steroids; solu medrol 60 mg IV x 1 in ED, then 40 mg IV q12h * Will hold glipizide and initiate weight based SQ basal + bolus insulin. Add overnight BSG checks with coverage for 00 and 04. PLAN FOR INPATIENT GLYCEMIC CONTROL: * Hold outpatient oral diabetes medications * Basal insulin * Lantus SQ per scale BID: * 10 units for BSG < 140 mg/dL * 18 units for BSG 140 - 200 mg/dL * 27 units for BSG > 200 mcg/dL * Bolus insulin * NovoLog per scale ACHS or Q6hrs while NPO * Goal Range: Low 120 mg/dL - High 150 mg/dL * Correction Factor: 15 mg/dL/unit * Nutritional / Prandial insulin per carb ratio of 1 unit per 5 grams CHO consumed PLAN FOR DISCHARGE: * to be determined
[2019-07-20] MEDS ORDERED: INSULIN GLARGINE SOLOSTAR 100 UNITS/ML 3 ML PEN SC ONE (20:30)
[2019-07-20] MEDS ORDERED: VANCOMYCIN HCL 2,250 MG in SODIUM CHLORIDE 0.9% 500 ML IV ONE (20:30)
[2019-07-20] MEDS ORDERED: POTASSIUM CHLORIDE 20 MEQ TABCR PO SCH (21:00)
[2019-07-20] MEDS ORDERED: glipiZIDE 5 MG TAB PO SCH (21:00)
[2019-07-20] MEDS ORDERED: CeleBREX 200 MG CAP PO SCH (21:00)
[2019-07-20] MEDS ORDERED: COUGH DROP (SUGAR FREE) LOZ 24 LOZ/1 BOX BUCCAL PRN (21:19)
[2019-07-20] MEDS: INSULIN ASPART 100 UNITS/ML 3 ML PEN SC SCH (21:29)
[2019-07-20] MEDS: SACUBITRIL-VALSARTAN 24-26 MG TAB PO SCH (21:31)
[2019-07-20] MEDS: BENZONATATE 100 MG CAPSULE PO SCH (21:31)
[2019-07-20] MEDS: METOPROLOL SUCC 50MG EXT REL TAB PO SCH (21:32)
[2019-07-20] MEDS: MAGNESIUM CHLORIDE 64MG DELAYED REL TAB PO SCH (21:32)
[2019-07-20] MEDS: PRAVASTATIN SOD 20 MG TAB PO SCH (21:32)
[2019-07-20] MEDS: GABAPENTIN 300 MG CAP PO SCH (21:33)
--- NOTE | 2019-07-20 21:44 | Pharmacy Report ---
Pharmacy Abx Dose Short Note - Date of Service July 20, 2019 - Assessment & Plan Assessment 88 year old M ordered vancomycin and zosyn for pneumonia influenza A/B PCR negative BC and MRSA nasal swab pending Plan Vancomycin * Loading dose: 2250 mg IV (21 mg/kg) * Maintenance dose: 1500 mg IV 18h (14 mg/kg) * Goal trough level ~15 mcg/mL * Will order trough level prior to the 3rd or 4th dose Zosyn * 3.375 g IV over 30 min, then q8h hours (extended infusion) for CrCL > 20 ml/min Pharmacy will continue to follow and will adjust dose/frequency as necessary. Thank you.
[2019-07-21] MEDS: INSULIN ASPART 100 UNITS/ML 3 ML PEN SC SCH ×7 (00:10→23:57)
[2019-07-21] MEDS: PIPERACILLIN/TAZOBACTAM 3.375 GM in DEXTROSE 5% 100 ML IV SCH ×2 (03:33→12:32)
[2019-07-21] MEDS ORDERED: methylPREDNISolone 40 MG in SYRINGE 0 ML IV SCH (04:00)
[2019-07-21] MEDS: LEVOTHYROXINE SODIUM 75 MCG TABLET PO SCH (05:56)
[2019-07-21 08:00] LABS: Hematocrit (blood only) 44.6 % (42-52); Hemoglobin 15.1 g/dL (14.0-18.0); Immature Granulocytes # (auto) 0.02 K/uL (0.00-0.02); Immature Granulocytes % (auto) 0.3 %; Lymphocytes # (auto) 0.78 K/uL (1.2-3.4); Lymphocytes % (auto) 13.6 %; Mean Corpuscular Hemoglobin 32.2 pg (25-34); Mean Corpuscular Hgb Conc 33.9 g/dL (32-36); Mean Corpuscular Volume 95.1 fL (80-100); Mean Platelet Volume 10.6 fL (7.4-10.4); Monocytes % (auto) 1.7 %; Neutrophils # (auto) 4.84 K/uL (1.4-6.5); Neutrophils % (auto) 84.4 %; Platelet Count 143 K/uL (130-400); RDW Standard Deviation 51.7 fL (36.4-46.3); Red Blood Count 4.69 M/uL (4.7-6.1); White Blood Count 5.74 K/uL (4.8-10.8)
[2019-07-21 08:22] LABS: Estimated Average Glucose 197 mg/dl; Hemoglobin A1C 8.5 % (4.5-5.6)
[2019-07-21 08:27] LABS: BUN Creatinine Ratio 22.6 (10-20); Calcium 10.8 mg/dl (8.5-10.1); Creatinine Clr Calc Pharmacy 40.8 ml/min; Est GFR (African American) 46.4; Magnesium 1.8 mg/dl (1.8-2.4)
[2019-07-21] MEDS: INSULIN GLARGINE SOLOSTAR 100 UNITS/ML 3 ML PEN SC SCH ×2 (08:28→21:05)
[2019-07-21] MEDS: METOPROLOL SUCC 50MG EXT REL TAB PO SCH ×2 (08:30→21:07)
[2019-07-21] MEDS: SACUBITRIL-VALSARTAN 24-26 MG TAB PO SCH ×2 (08:32→21:07)
[2019-07-21] MEDS: MAGNESIUM CHLORIDE 64MG DELAYED REL TAB PO SCH ×2 (08:33→21:05)
[2019-07-21] MEDS: CHOLECALCIFEROL 1,000 UNITS 25 MCG TAB PO SCH (08:33)
[2019-07-21] MEDS: CLOPIDOGREL BISULFATE 75 MG TAB PO SCH (08:33)
[2019-07-21] MEDS: GABAPENTIN 300 MG CAP PO SCH ×2 (08:33→21:05)
[2019-07-21] MEDS: MULTIVITAMIN TAB PO SCH (08:33)
[2019-07-21] MEDS: BENZONATATE 100 MG CAPSULE PO SCH ×3 (08:34→21:07)
[2019-07-21] MEDS: ISOSORBIDE MONO EXTENDED REL 30 MG TABCR PO SCH (08:48)
[2019-07-21] MEDS ORDERED: allopurinoL 300 MG TAB PO SCH (09:00)
[2019-07-21] MEDS ORDERED: metOLazone 5 MG TABLET PO SCH (09:00)
--- NOTE | 2019-07-21 09:38 | Cardiology Progress Note ---
Date of Service July 21, 2019 Assessment & Plan (1) SOB (shortness of breath): It seems the severe shortness of breath was related to coughing fits. It seems that these episodes are fairly prolonged in nature and made it difficult for him to breathe. Do not believe this was related pulmonary edema. I do not believe this was related to acute heart failure. He seems respond better to beta agonists and steroids and this could been some form of bronchitis. He did not report fevers chills or body aches which would be common with another currently circulating viruses. Clinically much improved today. Pulmonary embolus would be on the differential, but he did not have any lower extremity pain or swelling. His symptoms resolved without specific treatment. He has been on anti coagulation without interruption which makes the likelihood low. Did have a vascular procedure done approximately ten days ago. His Xarelto dose was reduced at that time in consultation with the pharmacist due to declining renal function. (2) Atrial fibrillation: Permanent. Good rate control status post AV node ablation. Occasional PVCs on telemetry but no conducted atrial fibrillation. On systemic anticoagulation. (3) Biventricular ICD (implantable cardioverter-defibrillator) in place: (4) Cardiomyopathy: He continues to have an element of LV dysfunction. Currently on Entresto and Toprol-XL. Appears well compensated currently. (5) Systolic CHF, chronic: (6) Coronary artery disease: Status post PCI of the right coronary artery 03/07/2019. Continue on Plavix and Xarelto Admission and Anticipated Discharge Date Admission Date: July 20, 2019 Subjective Patient is well known to me from the outpatient setting where he has been followed for permanent atrial fibrillation, symptomatic bradycardia status post pacemaker implantation, nonischemic cardiomyopathy and coronary artery disease who recently underwent AV node ablation for concerns over high heart rates and suboptimal pacing percentages on his biventricular ICD. A subsequent to the procedure the patient claims to be feeling well. He has been attempting to increase his exercise tolerance and generally speaking has felt well. He feels that he developed the acute onset of significant coughing starting yesterday morning. This was associated with some chest discomfort with coughing. It seems that the coughing spells are fairly prolonged compromise breathing. He attempted to use some [id number] remedies without success an S the symptoms became progressive throughout the course of the day he was advised by family members to seek attention at the emergency room. In the emergency room he was felt to have an element of hypoxia and was prescribed both breathing treatments and intravenous steroids. Patient did receive some diuretic as well. It seems that his symptoms resolved fairly acutely also. The patient states that since transferred to the [facility] he has not had coughing at all. He did not describe any symptoms of orthopnea. He has not noticed any lower extremity edema. He did not have fevers, chills or body aches. Review of Systems Review of Systems: All systems reviewed & are unremarkable except as noted in HPI & below No abdominal discomfort. No difficulty eating. Good compliance with medications. Physical Exam Physical Exam: The patient is alert and oriented. Mood and affect appeared normal. He answered all questions appropriately. HEENT: Pupils are equal and reactive to light and accommodation. Extraocular movements are intact. The sclerae are anicteric. Neuro: Cranial nerves intact Neck: Patient's neck is supple. He has palpable carotid pulses bilaterally without bruits on auscultation. There is no evidence of jugular venous distention. The thyroid is not enlarged. Lungs: Clear to auscultation bilaterally. He has good air movement without use of accessory muscles. No rales wheezes or rhonchi. Cardiac: Heart demonstrates a regular rate and rhythm. Normal S1 and S2. Soft crescendo systolic murmur. Pulses: The patient has palpable radial pulses bilaterally that are equal in intensity Extremities: There was no evidence of hypoperfusion. There is no cyanosis or clubbing. There is no edema. Skin: I did not appreciate any rashes on examination today. Results & Data ([facility]) Vital Signs (Past 12 Hours) Vital Signs Temp Pulse Pulse Resp BP Pulse Ox 07/21/19 07:11 76 07/21/19 07:06 36.4 C L 79 18 109/67 93 07/21/19 03:38 36.4 C L 90 18 112/68 94 07/21/19 00:17 79 07/20/19 22:40 36.9 C 68 18 109/63 91 Laboratory Results Abnormal Lab Results 07/20/19 07/20/19 07/20/19 15:20 15:20 15:20 WBC 4.44 L RBC 4.36 L Hgb 14.1 Hct 42.4 MCV 97.2 MCH 32.3 MCHC 33.3 RDW Std Deviation 52.9 H RDW Coeff of Alexandro 15.0 H Plt Count 124 L MPV 10.4 Immature Gran % (Auto) 0.5 Neut % (Auto) 59.6 Lymph % (Auto) 19.8 [place] % (Auto) 13.1 Eos % (Auto) 6.5 Baso % (Auto) 0.5 Immature Gran # (Auto) 0.02 Neut # (Auto) 2.65 Lymph # (Auto) 0.88 L [place] # (Auto) 0.58 Eos # (Auto) 0.29 Baso # (Auto) 0.02 PT 12.4 H INR 1.2 H APTT 31.0 PTT Ratio 1.1 Sodium 139 Potassium 4.6 Chloride 103 Carbon Dioxide 32 Anion Gap 3.0 BUN 28 H Creatinine 1.28 Est Cr Clr Drug Dosing 49.6 Est GFR ( Amer) 57.5 Est GFR (Non-Af Amer) 49.6 BUN/Creatinine Ratio 21.8 H Glucose 168 H POC Glucose Estimat Average Glucose Hemoglobin A1c Calcium 10.2 H Magnesium 1.6 L Total Bilirubin 0.5 AST 23 ALT 31 Alkaline Phosphatase 71 Troponin I < 0.015 NT-Pro-B Natriuret Pep 1230 Total Protein 7.4 Albumin 3.5 Globulin 3.9 Albumin/Globulin Ratio 0.9 Nasal Screen MRSA (PCR) Influenza Type A (PCR) Influenza Type B (PCR) 07/20/19 07/20/19 07/20/19 16:00 19:15 20:09 WBC RBC Hgb Hct MCV MCH MCHC RDW Std Deviation RDW Coeff of Alexandro Plt Count MPV Immature Gran % (Auto) Neut % (Auto) Lymph % (Auto) [place] % (Auto) Eos % (Auto) Baso % (Auto) Immature Gran # (Auto) Neut # (Auto) Lymph # (Auto) [place] # (Auto) Eos # (Auto) Baso # (Auto) PT INR APTT PTT Ratio Sodium Potassium Chloride Carbon Dioxide Anion Gap BUN Creatinine Est Cr Clr Drug Dosing Est GFR ( Amer) Est GFR (Non-Af Amer) BUN/Creatinine Ratio Glucose POC Glucose 308 H* Estimat Average Glucose Hemoglobin A1c Calcium Magnesium Total Bilirubin AST ALT Alkaline Phosphatase Troponin I NT-Pro-B Natriuret Pep Total Protein Albumin Globulin Albumin/Globulin Ratio Nasal Screen MRSA (PCR) Negative Influenza Type A (PCR) Neg for Influ A Influenza Type B (PCR) Neg for Influ B 07/20/19 07/20/19 07/20/19 20:43 20:43 23:49 WBC RBC Hgb Hct MCV MCH MCHC RDW Std Deviation RDW Coeff of Alexandro Plt Count MPV Immature Gran % (Auto) Neut % (Auto) Lymph % (Auto) [place] % (Auto) Eos % (Auto) Baso % (Auto) Immature Gran # (Auto) Neut # (Auto) Lymph # (Auto) [place] # (Auto) Eos # (Auto) Baso # (Auto) PT INR APTT PTT Ratio Sodium Potassium Chloride Carbon Dioxide Anion Gap BUN Creatinine Est Cr Clr Drug Dosing Est GFR ( Amer) Est GFR (Non-Af Amer) BUN/Creatinine Ratio Glucose POC Glucose 388 H* 372 H* 423 H* Estimat Average Glucose Hemoglobin A1c Calcium Magnesium Total Bilirubin AST ALT Alkaline Phosphatase Troponin I NT-Pro-B Natriuret Pep Total Protein Albumin Globulin Albumin/Globulin Ratio Nasal Screen MRSA (PCR) Influenza Type A (PCR) Influenza Type B (PCR) 07/20/19 07/21/19 07/21/19 23:51 03:36 07:33 WBC 5.74 RBC 4.69 L Hgb 15.1 Hct 44.6 MCV 95.1 MCH 32.2 MCHC 33.9 RDW Std Deviation 51.7 H RDW Coeff of Alexandro 15.0 H Plt Count 143 MPV 10.6 H Immature Gran % (Auto) 0.3 Neut % (Auto) 84.4 Lymph % (Auto) 13.6 [place] % (Auto) 1.7 Eos % (Auto) 0.0 Baso % (Auto) 0.0 Immature Gran # (Auto) 0.02 Neut # (Auto) 4.84 Lymph # (Auto) 0.78 L [place] # (Auto) 0.10 L Eos # (Auto) 0.00 Baso # (Auto) 0.00 PT INR APTT PTT Ratio Sodium Potassium Chloride Carbon Dioxide Anion Gap BUN Creatinine Est Cr Clr Drug Dosing Est GFR ( Amer) Est GFR (Non-Af Amer) BUN/Creatinine Ratio Glucose POC Glucose 394 H* 205 H Estimat Average Glucose Hemoglobin A1c Calcium Magnesium Total Bilirubin AST ALT Alkaline Phosphatase Troponin I NT-Pro-B Natriuret Pep Total Protein Albumin Globulin Albumin/Globulin Ratio Nasal Screen MRSA (PCR) Influenza Type A (PCR) Influenza Type B (PCR) 07/21/19 07/21/19 07/21/19 07:33 07:33 07:35 WBC RBC Hgb Hct MCV MCH MCHC RDW Std Deviation RDW Coeff of Alexandro Plt Count MPV Immature Gran % (Auto) Neut % (Auto) Lymph % (Auto) [place] % (Auto) Eos % (Auto) Baso % (Auto) Immature Gran # (Auto) Neut # (Auto) Lymph # (Auto) [place] # (Auto) Eos # (Auto) Baso # (Auto) PT INR APTT PTT Ratio Sodium 138 Potassium 4.0 Chloride 102 Carbon Dioxide 28 Anion Gap 8.0 BUN 35 H Creatinine 1.53 H Est Cr Clr Drug Dosing 40.8 Est GFR ( Amer) 46.4 Est GFR (Non-Af Amer) 40.0 BUN/Creatinine Ratio 22.6 H Glucose 220 H POC Glucose 207 H Estimat Average Glucose 197 Hemoglobin A1c 8.5 H Calcium 10.8 H Magnesium 1.8 Total Bilirubin AST ALT Alkaline Phosphatase Troponin I NT-Pro-B Natriuret Pep Total Protein Albumin Globulin Albumin/Globulin Ratio Nasal Screen MRSA (PCR) Influenza Type A (PCR) Influenza Type B (PCR) Diagnostic Findings Chest x-ray obtained at time admission suggestive of atelectasis. PG Care Time/CCT Total # of Minutes Spent Total Time Spent with Patient: Total time spent is greater than 50% in coordination of care (as documented) at patient's floor/unit and/or counseling patient: Coding Level of Care Code 43103 Office/Outpt Visit, Est Diagnoses SOB (shortness of breath) R06.02 Atrial fibrillation I48.91 Biventricular ICD (implantable cardioverter-defibrillator) in place Z95.810 Cardiomyopathy I42.9 Systolic CHF, chronic I50.22 Coronary artery disease I25.10
[2019-07-21] MEDS ORDERED: INSULIN HUMAN REGULAR PER UNIT 10 UNITS in SYRINGE 9.9 ML IV ONE ×2 (11:45)
[2019-07-21] MEDS ORDERED: VANCOMYCIN HCL 1,500 MG in SODIUM CHLORIDE 0.9% 500 ML IV SCH (14:00)
--- NOTE | 2019-07-21 15:26 | Pharmacy Report ---
Glycemic Control Progress Note - Date of Service July 21, 2019 - Scope Glycemic Pharmacist consulted for glycemic control to write orders per [facility] inpatient glycemic control protocol. - Objective Accuchecks BSG(last 24 hours):: 07/20/19 07/20/19 07/20/19 15:20 20:09 20:43 Glucose 168 H POC Glucose 308 H* 388 H* 07/20/19 07/20/19 07/20/19 20:43 23:49 23:51 Glucose POC Glucose 372 H* 423 H* 394 H* 07/21/19 07/21/19 07/21/19 03:36 07:33 07:35 Glucose 220 H POC Glucose 205 H 207 H 07/21/19 07/21/19 07/21/19 11:08 11:09 14:23 Glucose POC Glucose 315 H* 350 H* 288 H HbA1c:: Hemoglobin A1c 8.5 % (4.5-5.6) H 07/21/19 07:33 - Recent Pertinent Medications The patient is currently receiving: * Basal insulin: Lantus 27 units every 12 hours * Correctional Insulin: Novolog Correction per scale ACHS Goal Range: Low 120 mg/dL - High 150 mg/dL Correction Factor: 15 mg/dL/unit * Prandial insulin: Per carb ratio of 1 unit per 5 grams CHO consumed - Outpatient Anti-Diabetic Meds glipizide 5 mg daily - Assessment & Plan ASSESSMENT: * See progress note from 07/20/2019 for more background info, in short: * Pt receiving SQ basal bolus insulin regimen for hyperglycemia secondary to baseline DM (outpatient regimen on hold), pulmonary infection on vancomycin and zosyn (plan for doxycycline as outpatient), and steroids (received Solu- Medrol 60 mg IV x 1 then started on Solu-Medrol 40 mg IV q12 ... plan for prednisone 40 mg daily as an outpatient). * Patient is currently receiving an average of 59 units of insulin during the second half of yesterday (from admission to midnight) plus 10 units IV * 27 units of basal insulin * 32 units of prandial/correctional insulin * BSGs ranging 168 - 423 mg/dl over the past 24hrs * Changes needed to insulin regimen: * AM Fasting BSG = 207 mg/dl. This is above goal range for patient based on inpatient targets and co-morbidities. The patient received an additional 21 units of Novolog overnight. Continue with scale. Eliminate 27 units dose for tonight due to steroid tapering. * Post-prandial BSGs are elevated. Weight-based stress of 3 had not been tested prior to breakfast. Therefore continued with that dose. Blood sugar increased rapidly at lunch. Tightened parameters. Provided IV bolus. Plan for further tightening at dinner if BSGs continue to rise. Concern about providing adequate coverage as 2 hours after 35 units of Novolog and 10 units IV the patient's BSG was still 288 mg/dL. * Total daily dose = ? units. This will change rapidly with changing steroids. PLAN FOR INPATIENT GLYCEMIC CONTROL: * Changing Lantus to 0-18 units SQ BID * Lantus 0 units for BSG below 140 mg/dL * Lantus 10 units for BSG 140-160 mg/dL * Lantus 18 units for BSG > 160 mg/dL * TIGHTENING correction factor to 12 mg/dl/unit * TIGHTENING carb ratio to 1 unit per 4 grams CHO consumed * Continuing goal range of Low 120 mg/dL - High 150 mg/dL RECOMMENDATIONS FOR DISCHARGE: * Patient is only on oral medication (glipizide) with an adequate HbA1C considering age and comorbidities. * Concern for patient going home as he does not check his blood sugars. Uncertain how hard prednisone will affect blood sugars. Sometimes PO steroids do not cause the same degree of hyperglycemia. * If family unable to give patient insulin or he does not want, recommend increasing glipizide 10 mg PO BID while on steroids. * If family able to give insulin would recommend NPH 40 units (0.4 mLs) once daily with breakfast. * Available [id number] at [facility] if insurance does not cover. Thank you.
--- NOTE | 2019-07-21 15:42 | Hospitalist Progress Note ---
Date of Service July 21, 2019 Assessment & Plan (1) Pneumonia: Tested negative for influenza. - Repeat CXR - RSVP - Continue doxycycline for bronchitis, steroids & Nebs for bronchospasm (2) Systolic CHF, chronic: Last echo from 05/25/2019 shows an EF of 25-30% with global hypokinesis of left ventricle. Patient given Lasix 40 mg IV x1 in the emergency room. Seen by Dr. Sepulveda who feels he is not in acute exacerbation. BNP normal. - Hold for mild BARRY Continue this at 40 mg daily along with his oral metolazone. (3) Atrial fibrillation: Status post ablation on 07/10/2019. Patient seems to doing well from this respect. - Continue beta-pascual & anticoagulation (4) DM II (diabetes mellitus, type II), controlled: A1c is 8.5% this admission. Patient is on glipizide only. - Blood sugars out of control today (300+) on steroids. - Glycemic pharmacist following - ADA diet (5) Coronary artery disease: This appears to be stable. No chest pain. - Continue Plavix as previously ordered along with pravastatin. (6) DVT prophylaxis: SCDs and early ambulation Admission and Anticipated Discharge Date Admission Date: July 20, 2019 Subjective Doing well today. No major shortness of breath or cough. Reports no fevers/chills, chest pain, abdominal pain, nausea, or vomiting. Physical Exam Constitutional: WD/WN, vitals as above Eyes: EOM intact bilaterally; no conjunctival abnormality ENMT: external ear and nose normal, oropharynx normal Neck: trachea midline, no thyromegaly normal visual inspection Respiratory: normal respiratory effort, lungs clear to auscultation no respiratory distress Cardiovascular: RRR, no murmur, no edema Gastrointestinal (Abdomen): Inspection/Auscultation: abdomen normal to inspection; abdomen not distended Musculoskeletal: no cyanosis or clubbing, extremities motor strength 5/5 Skin: no rashes, warm and dry Neurologic: moves all extremities and awake Psychiatric: Orientation: alert, oriented to person and cooperative Results & Data ([facility]) Vital Signs (Past 12 Hours) Vital Signs Temp Pulse Pulse Resp BP Pulse Ox 07/21/19 13:20 36.4 C L 81 18 153/93 H 95 07/21/19 13:10 36.4 C L 81 18 153/93 H 95 07/21/19 11:44 36.4 C L 81 18 153/93 H 95 07/21/19 07:11 76 07/21/19 07:06 36.4 C L 79 18 109/67 93 07/21/19 03:38 36.4 C L 90 18 112/68 94 PG Care Time/CCT Total # of Minutes Spent Total Time Spent with Patient: Total time spent is greater than 50% in coordination of care (as documented) at patient's floor/unit and/or counseling patient: Coding Level of Care Code 01077 Subseq Hosp Care Lvl 2 Diagnoses Pneumonia J18.9 Systolic CHF, chronic I50.22 Atrial fibrillation I48.91 DM II (diabetes mellitus, type II), controlled E11.9 Coronary artery disease I25.10 DVT prophylaxis Z29.9
--- NOTE | 2019-07-21 15:43 | Billing Data ---
Date of Service July 21, 2019 Coding Level of Care Code 17156 Prolonged Care (int'l) Comment In the patient rooms from 9:00am - 9:15am and 3:20pm to 3:40pm.
[2019-07-21] MEDS ORDERED: RIVAROXABAN 15 MG TAB PO SCH (16:30)
[2019-07-21] MEDS: DOXYCYCLINE HYCLATE 100 MG CAP PO SCH (17:47)
--- NOTE | 2019-07-21 19:48 | XRay Report ---
TWO VIEW CHEST CLINICAL HISTORY: Dyspnea. FINDINGS: PA and lateral chest radiographs are compared to study dated 07/20/2019. Correlation is made with chest CT dated 07/23/2016. A 3-lead cardiac AICD is unchanged in position and partially obscures the left mid chest. The heart is enlarged noting atherosclerotic calcification of the thoracic aorta . Pulmonary vascular congestion has almost completely resolved from yesterday. There is bibasilar sca rring/atelectasis. No large pleural effusion is identified There is no pneumothorax. The skeletal str uctures are osteopenic. The bony thorax appears intact. Degenerative change is noted in the thoracic spine. IMPRESSION: 1. Cardiomegaly and AICD. Pulmonary vascular congestion has almost completely resolved from yesterday . 2. No pleural effusion is identified. ACT 112: Negative or not required by law. Electronically signed by: Ham Mayer M.D. 07/21/2019 7:46 PM
[2019-07-21] MEDS: PRAVASTATIN SOD 20 MG TAB PO SCH (21:08)
[2019-07-22] MEDS: INSULIN ASPART 100 UNITS/ML 3 ML PEN SC SCH ×3 (03:50→12:19)
--- NOTE | 2019-07-22 05:29 | Electrocardiogram Report ---
Test Reason : Blood Pressure : / mmHG Vent. Rate : 076 BPM Atrial Rate : 077 BPM P-R Int : 000 ms QRS Dur : 138 ms QT Int : 444 ms P-R-T Axes : 000 -34 079 degrees QTc Int : 499 ms Poor data quality, interpretation may be adversely affected Ventricular-paced rhythm Abnormal ECG When compared with ECG of 07-MAR-2019 13:24, Premature ventricular complexes are no longer Present Vent. rate has decreased BY 28 BPM Confirmed by Peter Lovelace ([id number]) on 07/22/2019 5:29:07 AM Referred By: REFERRED SELF Confirmed By:Peter Lovelace
[2019-07-22] MEDS: DOXYCYCLINE HYCLATE 100 MG CAP PO SCH (06:10)
[2019-07-22] MEDS: LEVOTHYROXINE SODIUM 75 MCG TABLET PO SCH (06:10)
[2019-07-22 07:10] LABS: Hematocrit (blood only) 42.9 % (42-52); Hemoglobin 14.2 g/dL (14.0-18.0); Mean Corpuscular Hemoglobin 31.6 pg (25-34); Mean Corpuscular Hgb Conc 33.1 g/dL (32-36); Mean Corpuscular Volume 95.3 fL (80-100); Mean Platelet Volume 10.3 fL (7.4-10.4); Platelet Count 137 K/uL (130-400); RDW Coefficient of Variation 15.3 % (11.5-14.5); RDW Standard Deviation 52.9 fL (36.4-46.3); White Blood Count 9.19 K/uL (4.8-10.8)
[2019-07-22 07:52] LABS: BUN Creatinine Ratio 28.9 (10-20); Calcium 10.2 mg/dl (8.5-10.1); Creatinine Clr Calc Pharmacy 41.1 ml/min; Est GFR (African American) 46.7; Est GFR (Non-African American) 40.3; Magnesium 1.8 mg/dl (1.8-2.4); Potassium 3.7 mmol/L (3.5-5.1)
[2019-07-22] MEDS: BENZONATATE 100 MG CAPSULE PO SCH ×2 (07:56→13:49)
[2019-07-22] MEDS: METOPROLOL SUCC 50MG EXT REL TAB PO SCH (07:56)
[2019-07-22] MEDS: CHOLECALCIFEROL 1,000 UNITS 25 MCG TAB PO SCH (07:56)
[2019-07-22] MEDS: GABAPENTIN 300 MG CAP PO SCH (07:57)
[2019-07-22] MEDS: MAGNESIUM CHLORIDE 64MG DELAYED REL TAB PO SCH (07:57)
[2019-07-22] MEDS: MULTIVITAMIN TAB PO SCH (07:57)
[2019-07-22] MEDS: ISOSORBIDE MONO EXTENDED REL 30 MG TABCR PO SCH (07:57)
[2019-07-22] MEDS: SACUBITRIL-VALSARTAN 24-26 MG TAB PO SCH (07:57)
[2019-07-22] MEDS ORDERED: INSULIN HUMAN NPH SC SCH (08:00)
[2019-07-22] MEDS: CLOPIDOGREL BISULFATE 75 MG TAB PO SCH (08:34)
[2019-07-22] MEDS ORDERED: glipiZIDE 5 MG TAB PO SCH (09:00)
[2019-07-22] MEDS ORDERED: predniSONE 20 MG TAB PO SCH (09:00)
--- NOTE | 2019-07-22 10:36 | Pharmacy Report ---
Glycemic Control Progress Note - Date of Service July 22, 2019 - Scope Glycemic Pharmacist consulted for glycemic control to write orders per [facility] inpatient glycemic control protocol. - Objective Accuchecks BSG(last 24 hours):: 07/21/19 07/21/19 07/21/19 11:08 11:09 14:23 Glucose POC Glucose 315 H* 350 H* 288 H 07/21/19 07/21/19 07/21/19 16:26 20:29 23:55 Glucose POC Glucose 165 H 151 H 154 H 07/22/19 07/22/19 07/22/19 03:46 06:52 07:48 Glucose 167 H POC Glucose 183 H 135 H HbA1c:: Hemoglobin A1c 8.5 % (4.5-5.6) H 07/21/19 07:33 - Recent Pertinent Medications The patient is currently receiving: * Basal insulin: Lantus 27 units in the morning and 10 units in the evening * Correctional Insulin: Novolog Correction per scale ACHS Goal Range: Low 120 mg/dL - High 150 mg/dL Correction Factor: 12 mg/dL/unit * Prandial insulin: Per carb ratio of 1 unit per 4 grams CHO consumed - Outpatient Anti-Diabetic Meds glipizide 5 mg PO BIDM - Assessment & Plan ASSESSMENT: * See progress note from 07/21/2019 for more background info, in short: * Pt receiving SQ basal bolus insulin regimen for hyperglycemia secondary to baseline DM (outpatient regimen on hold),stress/infection (on doxycycline), and steroids (decreased to prednisone 20 mg daily today). * Patient is currently receiving an average of 98 units of insulin per day * 37 units of basal insulin * 61 units of prandial/correctional insulin * BSGs ranging 151 - 350 mg/dl over the past 24hrs * Changes needed to insulin regimen: * AM Fasting BSG = 135 mg/dl. This is in goal range for patient based on inpatient targets and co-morbidities. Change to just NPH for today to see the effects of PO prednisone. * Post-prandial BSGs were extremely elevated yesterday due to IV steroids. Changed to PO prednisone. In preparation for discharge, change to glipizide 5 mg PO BIDM. Remove CR and leave CF. Start NPH 40 units today --- 0.4 units/kg. * Total daily dose = ? units. will change significantly with changing steroids. PLAN FOR INPATIENT GLYCEMIC CONTROL: * Stopping Lantus and Start NPH 40 units SQ daily with prednisone. * Continuing correction factor of 15 mg/dl/unit * Stopping carb ratio * Starting glipizide 5 mg PO BIDM * Continuing goal range of Low 120 mg/dL - High 160 mg/dL RECOMMENDATIONS FOR DISCHARGE: * While on steroids, recommend glipizide 10 mg PO qAM plus 5 mg PO with evening meal. * While off steroids, continue home regimen and follow-up with PCP. Thank you.
--- NOTE | 2019-07-22 16:37 | Discharge Summary ---
Date of Service July 22, 2019 Admission HPI Per Admitting Provider This is an 88-year-old male with past medical history of atrial fibrillation with AV ablation earlier this month, status BiV pacemaker, chronic systolic CHF, obstructive sleep apnea that presents today complaining of acute shortness of breath. Patient is pleasantly good historian, accompanied by his son. Patient was briefly admitted here from in a cardiology service for an AV ablation for his chronic atrial fibrillation. This procedure was performed without complications. Patient tells me that he went home afterwards and did not have any issues. Starting last night, he had a mild cough that was dry without production. Denies any fevers or chills. Unfortunately, the cough progressed and now is quite bad. It is hacking and associated with shortness of breath. He denies any chest pain or palpitations with this. He denies any abdominal issues, nausea, vomiting, diarrhea, or constipation. The patient's symptoms became bad enough that he presented to the emergency room for further evaluation. On presentation, the patient was found to have an O2 sat of 88%. He started on 2 L nasal cannula which he has responded to well. He is afebrile. He is in paced rhythm in the 70s on monitor. He does not appear to be in any cardiopulmonary distress. Principal Diagnosis Shortness of breath Discharge Exam Constitutional WD/WN, vitals as above Eyes EOM intact bilaterally; no conjunctival abnormality ENMT external ear and nose normal, oropharynx normal Neck trachea midline, no thyromegaly normal visual inspection Respiratory normal respiratory effort, lungs clear to auscultation no respiratory distress Cardiovascular RRR, no murmur, no edema Gastrointestinal (Abdomen) Inspection/Auscultation: abdomen normal to inspection; abdomen not distended Musculoskeletal no cyanosis or clubbing, extremities motor strength 5/5 Skin no rashes, warm and dry Neurologic moves all extremities and awake Psychiatric Orientation: alert, oriented to person and cooperative Discharge Data Allergies Allergy/AdvReac Type Severity Reaction Status Date / Time No Known Drug Allergies Allergy Unknown Verified 07/20/19 16:01 Consultations 07/20/19 16:07 ED Decision to Admit Stat 07/20/19 19:16 Consult Cardiology Routine Hospital Course (1) Pneumonia: Tested negative for influenza. Repeat CXRs were also negative for pneumonia. Likely a mild bronchitis. - Continued doxycycline for bronchitis & short course of steroids & Nebs for bronchospasm (2) Systolic CHF, chronic: Last echo from 05/25/2019 shows an EF of 25-30% with global hypokinesis of left ventricle. Patient given Lasix 40 mg IV x1 in the emergency room. Seen by Dr. Sepulveda who feels he is not in acute exacerbation. BNP normal. - Held for one day for mild BARRY. - Restart on discharge. (3) Atrial fibrillation: Status post ablation on 07/10/2019. Patient seems to doing well from this respect. - Continued beta-pascual & anticoagulation (4) DM II (diabetes mellitus, type II), controlled: A1c is 8.5% this admission. Patient is on glipizide only. - Blood sugars were out of control due to steroids. - On discharge, given the short course of low-dose steroids, we doubled his glipizide AM dose. (5) Coronary artery disease: This appears to be stable. No chest pain. - Continue Plavix as previously ordered along with pravastatin. (6) DVT prophylaxis: SCDs and early ambulation Total Time Total Time Spent Total Time Spent (In Minutes): 35 Discharge Plan Discharge Items Patient Disposition: Home - Self-Care Reason For Visit: SOB, HYPOXIA Discharge Diagnosis: Possible bronchitis Condition on Discharge: Good Activity: Resume your previous activity Non-emergency contact: Primary Care Provider and Line Service Supervisor Call non-emergency contact if: your symptoms worsen Follow-up/Referrals: Bora Najera MD [Primary Care Provider] - 07/24/19 11:30 am Diet: Heart Healthy Addtl Attending Provider Instructions: You were admitted to the hospital with coughing fits that were bad enough to cause shortness of breath. We gave you a breathing treatment which helped resolved your cough, and you reported you felt at your baseline by the next day. We are sending you home on steroids, antibiotics, cough medication, and breathing treatments. Dr. Sepulveda saw you and felt you were doing well. We would like you to follow up with Dr. Najera who also knows you well. However, you may want to avoid the hospital and doctors' offices for at least a few weeks until we determine how the coronoavirus will affect our community. Please have a low threshold to call Dr. Najera or Dr. Sepulveda's office. While you are on steroids (meaning, through this Sunday), please double your dose of glipizide at home. This will help counteract the high blood sugars that can be a side effect of steroids. Of note, the steroid can at times cause water retention. In the hospital, we weighed you at 227 pounds. Please check your weight today and try to stay close to it to be sure you don't retain fluid on the steroids. Pending Studies at Discharge: No Stand-Alone Forms: My [facility], Smoking Cessation Medications and DC Order Prescriptions: New benzonatate [Tessalon Perles] 100 mg Capsule 100 mg PO TID PRN (Reason: Cough) Qty: 21 RF: 0 doxycycline hyclate 100 mg tablet 100 mg PO BID Qty: 8 RF: 0 albuterol sulfate 90 mcg/actuation HFA aerosol inhaler 2 puffs INH Q6H PRN (Reason: shortness of breath or wheezing) Qty: 6.7 RF: 0 prednisone 20 mg tablet 20 mg PO DAILY 3 Days Qty: 3 RF: 0 Continued multivitamin capsule 1 cap PO QAM RF: 0 glipizide 5 mg tablet 5 mg PO BID RF: 0 cholecalciferol (vitamin D3) 1,000 unit capsule 1,000 units PO QAM RF: 0 levothyroxine 75 mcg capsule 75 mcg PO QAM RF: 0 clopidogrel 75 mg tablet 75 mg PO QAM 90 Days Qty: 90 RF: 3 allopurinol [Zyloprim] 300 mg tablet 300 mg PO DAILY Qty: 90 RF: 3 metolazone 5 mg tablet 5 mg PO DAILY Qty: 90 RF: 3 isosorbide mononitrate 30 mg tablet extended release 24 hr 30 mg PO DAILY Qty: 90 RF: 3 gabapentin 300 mg capsule 300 mg PO BID Qty: 60 RF: 1 potassium chloride 20 mEq tablet,ER particles/crystals 20 meq PO PM Qty: 90 RF: 3 pravastatin [Pravachol] 20 mg tablet 20 mg PO PM Qty: 90 RF: 3 metoprolol succinate 100 mg tablet extended release 24 hr 100 mg PO BID Qty: 180 RF: 3 Xarelto 15 mg Tablet 15 mg PO QDD Qty: 30 RF: 3 sacubitril-valsartan 24-26 mg Tablet 1 tab PO BID RF: 0 furosemide [Lasix] 40 mg Tablet 40 mg PO Q OTHER DAY PRN (Reason: Fluid Retention) RF: 0 magnesium chloride 64 mg Tablet,Delayed Release (Dr/Ec) 64 mg PO BID RF: 0 Discontinued celecoxib 200 mg capsule 200 mg PO PM Qty: 90 RF: 1 Discharge Orders: Discharge Order (Routine); Ordered 07/22/19 Ordered By: Apolinar Ortiz/Other Patient Handouts: Diabetes Manage A1C Test Admission Data Admit Date/Time: 07/20/19 16:58 Attending Provider: Apolinar Ibanez Admit Provider: Francois Hitchcock Primary Care Provider: Bora Najera Other Providers: Rocael Sepulveda ; Apolinar Ibanez ; [place] Other Interventions: Discharge Summary Assessment (RN) Last Done: 07/22/19 12:52 DC Date/Time DO NOT enter until pt leaves facility: 07/22/19 15:26 Coding Level of Care Code D/C Day Management >30 mins Diagnoses Pneumonia J18.9 Systolic CHF, chronic I50.22 Atrial fibrillation I48.91 DM II (diabetes mellitus, type II), controlled E11.9 Coronary artery disease I25.10 DVT prophylaxis Z29.9
== END 2019-07-22 15:26 | disposition home health service (06) | DRG 202 ==
LOC: ED 14:21 → 2N 16:58 → SUATTDRO 16:58 → 2N 18:52